=== PATIENT | female | born 1975 | race Caucasian/White ===

== ENCOUNTER 2016-09-14 09:46 | Emergency (ER) | payer MEDICAID ==
[2014-07-14 08:32] VITALS: BMI 30.6
[~2016-09-14 09:46] MED LIST: GLUCOPHAGE1000 MG PO; HYDROCODONE-APA1 TAB PO; VICTOZA0.6 MG/0.1 SQ
[2016-09-14 10:29] LABS: BASOPHILS 0.2 % (0.0-2.0); EOSINOPHILS 1.1 % (0-7); HEMATOCRIT 37.2 % (36.0-48.0); HEMOGLOBIN 11.8 g/dL (12-16); IMMATURE GRANULOCYTES 0.3 % (0-5); LYMPHOCYTES 20.6 % (15-50); MCH 25.1 pg (26.0-34.0); MCHC 31.7 g/dL (31.0-37.0); MEAN PLATELET VOLUME 8.7 fL (7.4-10.4); MONOCYTES 4.8 % (2-11); PLATELET COUNT 376 10x3/uL (130-400); RBC 4.71 10x6/uL (4.00-5.40); WBC 10.2 10x3/uL (4.8-10.8)
[2016-09-14 10:44] LABS: ALBUMIN 3.4 g/dL (3.4-5.0); ALKALINE PHOSPHATASE 77 U/L (46-116); ALT (SGPT) 12 U/L (10-68); AMYLASE - SERUM 65 U/L (25-115); BILIRUBIN - TOTAL 0.34 mg/dL (0.2-1.3); CALC OSMOLALITY 279 mosm/kg (275-300); CALCIUM 9.4 mg/dL (8.5-10.1); CARBON DIOXIDE 21.9 mmol/L (21.0-32.0); CHLORIDE - SERUM 100 mmol/L (98-107); CREATININE - SERUM 0.6 mg/dL (0.6-1.3); GLUCOSE 254 mg/dL (74-106); LIPASE 180 U/L (73-393); POTASSIUM - SERUM 3.1 mmol/L (3.5-5.1); PROTEIN - SERUM 7.9 g/dL (6.4-8.2); SODIUM 136 mmol/L (136-145); UREA NITROGEN 9 mg/dL (7-18); eGFR NON AFRICAN AMERICAN > 90 mL/min (90-120)
[2016-09-14 10:50] LABS: APPEARANCE CLEAR (CLEAR); BILIRUBIN NEGATIVE (NEGATIVE); COLOR YELLOW (YELLOW); GLUCOSE NEGATIVE (NEGATIVE); KETONE NEGATIVE (NEGATIVE); LEUKOCYTE ESTERASE TRACE (NEGATIVE); NITRITE NEGATIVE (NEGATIVE); PROTEIN 2+ mg/dL (NEGATIVE); UROBILINOGEN NORMAL (NORMAL)
[2016-09-14 10:51] LABS: EPITHELIAL CELLS 0-5 /hpf (0-5); RED CELLS - URINE 0-5 /hpf (0-5); WHITE CELLS - URINE 0-5 /hpf (0-5)
[2016-09-14 10:52] LABS: BACTERIA FEW /hpf (NONE SEEN); MUCUS <1+ /lpf (NONE SEEN)
== END 2016-09-14 15:39 | disposition home or self-care (01) ==
LOC: D.ER 09:46
PROVIDERS: Emergency Medicine
DX: K52.9 Noninfective gastroenteritis and colitis, unspecified (principal)

== ENCOUNTER 2016-09-29 21:20 | Emergency (ER) | payer MEDICAID ==
[2014-07-14 08:32] VITALS: BMI 30.6
== END 2016-09-29 23:12 | disposition home or self-care (01) ==
LOC: D.ER 21:20
DX: J06.9 Acute upper respiratory infection, unspecified (principal); F17.200 Nicotine dependence, unspecified, uncomplicated

== ENCOUNTER 2016-11-07 20:04 | Emergency (ER) | payer MEDICAID ==
[2014-07-14 08:32] VITALS: BMI 30.6
== END 2016-11-07 21:08 | disposition home or self-care (01) ==
LOC: D.ER 20:04
DX: R51 Headache (principal)

== ENCOUNTER → 2016-11-12 16:09 | Outpatient (CLI) | payer MEDICAID ==
[2014-07-14 08:32] VITALS: BMI 30.6
== END | disposition home or self-care (01) ==
LOC: D.MRI 16:09
DX: R51 Headache (principal)

== ENCOUNTER → 2016-11-14 08:09 | Outpatient (CLI) | payer MEDICAID ==
[2014-07-14 08:32] VITALS: BMI 30.6
--- NOTE | 2016-11-28 08:22 | EMG ---
PATIENT:KENYON HUA DATE OF SERVICE: 11/14/16 MEDICAL RECORD: [id number] DATE OF : 71 LOCATION: [facility] ADMISSION DATE: REFERRING PHYSICIAN: DYANA SEGOVIA MD INTERPRETING PHYSICIAN: AUSTYN DE LA O MD DATE OF SERVICE: 11/14/2016 Electromyographic Report REFERRED BY: Dr. Segovia as an outpatient. ELECTROMYOGRAPHIC DATA: Electromyographic examination is limited to the right lower extremity. In the right lower extremity, right peroneal motor stimulation elicits a compound motor action potential with a distal latency of 4.5 milliseconds, peak amplitude of 5 millivolts, and calculated conduction velocity of 36 meters per second. Right tibial motor stimulation elicits a compound motor action potential with a distal latency of 5.4 milliseconds, peak amplitude of 8 millivolts, and calculated conduction velocity of 40 meters per second. Antidromic right sural sensory stimulation elicits a response with a distal latency of 3.5 milliseconds, amplitude of 25 microvolts and calculated conduction velocity of 33 meters per second. The right lower extremity H reflex recording at gastrocsoleus has a latency of 40 milliseconds. Needle electrode examination is limited to the right lower extremity as well. Muscles interrogated include the abductor hallucis, extensor digitorum brevis, abductor digiti quinti, tibialis anterior, medial gastrocnemius, vastus lateralis, semitendinosis and gluteus mis. There is no abnormality of insertional activity and no abnormal spontaneous activity is seen in all muscles interrogated with the exception of rare positive sharp waves observed in the right medial gastrocnemius. Motor unit potential morphology and the pattern of motor unit potential firing and recruitment is normal in all muscles sampled. INTERPRETATION: Electromyographic examination of the right lower extremity demonstrates all calculated conduction velocity is to be at or below the lower limits of normal. All motor and sensory segments studied, most consistent with a diffuse disorder of the lower motor neuron such as a sensorimotor peripheral polyneuropathy, distinction between this and a more localized process navigated through this leg only such as a lumbosacral plexopathy, would require comparison to the contralateral lower extremity. Rare positive sharp waves are observed in the right medial gastrocnemius suggesting possible denervation in this muscle. Needle electrode examination is otherwise normal and gives no other evidence to suggest a superimposed lumbosacral radiculopathy or other lesion of the lower motor neuron in this limb. TRANSINT:[id number] Voice Confirmation ID: [id number] DOCUMENT ID: [id number] ELECTROMYGRAM/NERVE CONDUCTION [id number] KENYON HUA DONALD P MD at 0822 CC: [id number] DICTATION DATE: 11/14/16 0856 SETTER HELPER: 11/15/16 0002 DEP CLI 11/14/16 [place] [address] [id number] [place] [address]
== END | disposition home or self-care (01) ==
LOC: D.CN 08:00
DX: M79.604 Pain in right leg (principal)

== ENCOUNTER 2016-12-30 16:09 | Emergency (ER) | payer MEDICAID ==
[2014-07-14 08:32] VITALS: BMI 30.6
[2016-12-30 17:27] LABS: COLOR YELLOW (YELLOW)
[2016-12-30 17:28] LABS: APPEARANCE HAZY (CLEAR); BILIRUBIN NEGATIVE (NEGATIVE); GLUCOSE 1000 mg/dL (NEGATIVE); KETONE NEGATIVE (NEGATIVE); LEUKOCYTE ESTERASE 1+ (NEGATIVE); NITRITE NEGATIVE (NEGATIVE); PROTEIN TRACE mg/dL (NEGATIVE); SPECIFIC GRAVITY 1.015 (1.005-1.020); UROBILINOGEN NORMAL (NORMAL)
[2016-12-30 17:29] LABS: BACTERIA MODERATE /hpf (NONE SEEN); RED CELLS - URINE 0-5 /hpf (0-5); WHITE CELLS - URINE 0-5 /hpf (0-5)
[2016-12-30 17:35] LABS: BASOPHILS 0.5 % (0-2); EOSINOPHILS 1.7 % (0-7); HEMATOCRIT 37.1 % (36.0-48.0); HEMOGLOBIN 11.5 g/dL (12-16); IMMATURE GRANULOCYTES 0.1 % (0-5); LYMPHOCYTES 37.3 % (15-50); MCH 24.5 pg (26.0-34.0); MCV 79.1 fL (80.0-100.0); MEAN PLATELET VOLUME 9.1 fL (7.4-10.4); MONOCYTES 5.7 % (2-11); NEUTROPHILS 54.7 % (40-80); PLATELET COUNT 370 10x3/uL (130-400); RBC 4.69 10x6/uL (4.00-5.40); RDW 15.9 % (11.5-14.5); WBC 7.6 10x3/uL (4.8-10.8)
[2016-12-30 17:47] LABS: ALBUMIN 3.2 g/dL (3.4-5.0); ALKALINE PHOSPHATASE 95 U/L (46-116); ALT (SGPT) 17 U/L (10-68); BILIRUBIN - TOTAL 0.14 mg/dL (0.2-1.3); CALC OSMOLALITY 280 mosm/kg (275-300); CALCIUM 9.1 mg/dL (8.5-10.1); CARBON DIOXIDE 27.4 mmol/L (21.0-32.0); CHLORIDE - SERUM 99 mmol/L (98-107); CREATININE - SERUM 0.6 mg/dL (0.6-1.3); GLUCOSE 222 mg/dL (74-106); POTASSIUM - SERUM 3.5 mmol/L (3.5-5.1); PROTEIN - SERUM 7.7 g/dL (6.4-8.2); SODIUM 138 mmol/L (136-145); UREA NITROGEN 7 mg/dL (7-18); eGFR NON AFRICAN AMERICAN > 90 mL/min (90-120)
== END 2016-12-30 19:45 | disposition home or self-care (01) ==
LOC: D.ER 16:09
PROVIDERS: Nurse Practitioner Family
DX: J20.9 Acute bronchitis, unspecified (principal); J45.901 Unspecified asthma with (acute) exacerbation; J06.9 Acute upper respiratory infection, unspecified; F17.200 Nicotine dependence, unspecified, uncomplicated

== ENCOUNTER 2017-01-06 20:26 | Emergency (ER) | payer MEDICAID ==
[2014-07-14 08:32] VITALS: BMI 30.6
== END 2017-01-07 00:10 | disposition home or self-care (01) ==
LOC: D.ER 20:26
DX: M54.5 Low back pain (principal); M54.10 Radiculopathy, site unspecified; J45.909 Unspecified asthma, uncomplicated

== ENCOUNTER 2017-02-17 10:40 | Emergency (ER) | payer SELFPAY ==
[2014-07-14 08:32] VITALS: BMI 30.6
== END 2017-02-17 12:01 | disposition home or self-care (01) ==
LOC: D.ER 10:40
DX: S16.1XXA Strain of muscle, fascia and tendon at neck level, initial encounter (principal); W19.XXXA Unspecified fall, initial encounter; S39.012A Strain of muscle, fascia and tendon of lower back, initial encounter; F17.200 Nicotine dependence, unspecified, uncomplicated

== ENCOUNTER 2017-04-09 19:44 | Emergency (ER) | payer BC ==
[2014-07-14 08:32] VITALS: BMI 30.6
== END 2017-04-09 20:40 | disposition home or self-care (01) ==
LOC: D.ER 19:44
DX: M54.5 Low back pain (principal); M54.30 Sciatica, unspecified side; J45.909 Unspecified asthma, uncomplicated; F17.200 Nicotine dependence, unspecified, uncomplicated

== ENCOUNTER → 2017-04-25 13:00 | Outpatient (CLI) | payer BC ==
[2014-07-14 08:32] VITALS: BMI 30.6
[2017-04-25 13:59] LABS: CREATININE - SERUM 0.7 mg/dL (0.6-1.3)
== END | disposition home or self-care (01) ==
LOC: D.LAB 13:00 → D.MRI 13:30
PROVIDERS: Neurological Surgery
DX: M51.26 Other intervertebral disc displacement, lumbar region (principal)

== ENCOUNTER 2017-05-07 05:31 | Day surgery (SDC) | payer BC ==
[2017-05-06 14:02] LABS: HEMATOCRIT 40.2 % (36.0-48.0); HEMOGLOBIN 12.9 g/dL (12-16); MCH 25.4 pg (26.0-34.0); MCHC 32.1 g/dL (31.0-37.0); MCV 79.3 fL (80.0-100.0); MEAN PLATELET VOLUME 9.5 fL (7.4-10.4); RBC 5.07 10x6/uL (4.00-5.40); RDW 16.1 % (11.5-14.5); WBC 12.8 10x3/uL (4.8-10.8)
[2017-05-06 14:31] LABS: CALC OSMOLALITY 287 mosm/kg (275-300); CALCIUM 9.3 mg/dL (8.5-10.1); CARBON DIOXIDE 24.7 mmol/L (21.0-32.0); CHLORIDE - SERUM 94 mmol/L (98-107); CREATININE - SERUM 0.8 mg/dL (0.6-1.3); POTASSIUM - SERUM 3.4 mmol/L (3.5-5.1); SODIUM 135 mmol/L (136-145); UREA NITROGEN 6 mg/dL (7-18); eGFR NON AFRICAN AMERICAN 83 mL/min (90-120)
[2017-05-06 14:35] LABS: GLUCOSE 457 mg/dL (74-106)
[~2017-05-07] VITALS: Ht 170.2 cm; Wt 83.5 kg
[~2017-05-07 05:31] MED LIST changes: +PERCOCET 10/3251 TA1 PO; +PROAIR HFA8.5 GM INH
[2017-05-07] MEDS ORDERED: ZANAFLEX4 MG PO (06:19)
[2017-05-07] MEDS ORDERED: GABAPENTIN PO (06:21)
--- NOTE | 2017-05-07 06:29 | NUR ---
0629 PT STATES NO CHANGES IN HEALTH HISTORY ASSESSMENT SINCE INTERVIEWED ON 05/06/17. Sarmad CRESPO R.N.
[2017-05-07 06:31] VITALS: BP 107/69; Ht 170.2 cm; Wt 83.5 kg
--- NOTE | 2017-05-07 15:42 | NUR ---
1135 IV DC WITH CATHER TIP INTACT
--- NOTE | 2017-05-10 09:41 | OP ---
PATIENT NAME: KENYON WATSON MEDICAL RECORD: [id number] :71 LOCATION:[facility] ADMISSION DATE: SURGEON: KARI BREAUX MD DATE OF OPERATION: 05/07/2017 PREOPERATIVE DIAGNOSIS: Recurrent disc herniation L5-S1, right with right S1 nerve root radiculopathy. POSTOPERATIVE DIAGNOSIS: Recurrent disc herniation L5-S1, right with a right S1 nerve roots radiculopathy, with foraminal stenosis. PROCEDURES: Lumbar laminotomy, medial facetectomy and foraminotomy with discectomy at L5-S1, right. Redo laminectomy L5-S1, right with METRx retractor and foraminotomy L5-S1, right. DESCRIPTION AND TECHNIQUE: After induction of general endotracheal anesthesia, the patient was rolled prone on a Cristian frame. Lumbar spine was prepped and draped in usual sterile fashion. Fluoroscopic x-ray and spinal needle localized the L5-S1 interspace on the right side. A stab incision was created with #11 blade and series of dilators was used to advance the METRx retractor at L5-S1 interspace on the right side. The level was confirmed with fluoroscopic x-ray. A microscope and Midas Rick drill were used to perform a laminectomy and foraminotomy at L5-S1 on the right. A previous laminotomy was encountered. This was extended to laminectomy. Scar tissue was removed with Cloward rongeurs under microscopic illumination. Hypertrophied ligamentum flavum was removed as well. Next, there was an obvious disc herniation within the axilla at the S1 nerve root. This was removed with pituitary rongeurs. The disc space was entered with the pituitary rongeurs and further material was removed. The spinal canal was swept and a small additional disc fragment was obtained. The nerve root was completely decompressed after this. Meticulous hemostasis was maintained throughout the wound. Wound was irrigated with copious amounts of Ancef irrigant solution. The fascia was closed with a 2-0 Vicryl suture. The subdermal layer was closed with 3-0 Vicryl suture. The skin was closed with zeina. A sterile dressing was applied to the wound. The patient was awakened in good condition and taken to recovery. All counts were reported as correct. Estimated blood loss was minimal. TRANSINT:[id number] Voice Confirmation ID: [id number] DOCUMENT ID: [id number] KARI BREAUX MD at 0941 CC: [id number] DICTATION DATE: 05/08/17 1247 PAPER SALES MANAGER: 05/08/17 1833 [facility] 05/07/17 [place] [id number] [place] [id number]
== END 2017-05-07 12:30 | disposition home or self-care (01) ==
LOC: D.PAN 05:31 → D.OPS 10:15 → D.PAN 10:15
PROVIDERS: Anesthesiology
DX: M54.16 Radiculopathy, lumbar region (principal); F17.200 Nicotine dependence, unspecified, uncomplicated; J45.909 Unspecified asthma, uncomplicated; E11.9 Type 2 diabetes mellitus without complications; Z01.812 Encounter for preprocedural laboratory examination

== ENCOUNTER 2017-07-13 17:36 | Emergency (ER) | payer BC ==
[2017-05-07 06:31] VITALS: BMI 28.9
[~2017-07-13 17:36] MED LIST changes: +GABAPENTIN PO; +ZANAFLEX4 MG PO
[2017-07-13 19:00] LABS: APPEARANCE HAZY (CLEAR); BILIRUBIN NEGATIVE (NEGATIVE); COLOR DK YELLOW (YELLOW); GLUCOSE NEGATIVE (NEGATIVE); KETONE MODERATE mg/dL (NEGATIVE); NITRITE NEGATIVE (NEGATIVE); PROTEIN TRACE mg/dL (NEGATIVE); SPECIFIC GRAVITY 1.015 (1.005-1.020); UROBILINOGEN NORMAL (NORMAL)
[2017-07-13 19:03] LABS: BACTERIA FEW /hpf (NONE SEEN); EPITHELIAL CELLS 25-50 /hpf (0-5)
[2017-07-13 19:05] LABS: AMORPHOUS SEDIMENT <1+ /lpf (NONE SEEN)
[2017-07-13 20:08] LABS: BASOPHILS 0.2 % (0-2); EOSINOPHILS 1.3 % (0-7); HEMATOCRIT 38.7 % (36.0-48.0); HEMOGLOBIN 12.4 g/dL (12-16); IMMATURE GRANULOCYTES 0.2 % (0-5); MCH 26.2 pg (26.0-34.0); MCV 81.8 fL (80.0-100.0); MONOCYTES 7.5 % (2-11); NEUTROPHILS 61.8 % (40-80); PLATELET COUNT 289 10x3/uL (130-400); RBC 4.73 10x6/uL (4.00-5.40); WBC 8.6 10x3/uL (4.8-10.8)
[2017-07-13 20:26] LABS: ALBUMIN 3.2 g/dL (3.4-5.0); ALKALINE PHOSPHATASE 88 U/L (46-116); ALT (SGPT) 15 U/L (10-68); BILIRUBIN - TOTAL 0.28 mg/dL (0.2-1.3); CALCIUM 8.9 mg/dL (8.5-10.1); CHLORIDE - SERUM 99 mmol/L (98-107); CREATININE - SERUM 0.4 mg/dL (0.6-1.3); PROTEIN - SERUM 7.5 g/dL (6.4-8.2); SODIUM 138 mmol/L (136-145); UREA NITROGEN 7 mg/dL (7-18); eGFR NON AFRICAN AMERICAN > 90 mL/min (90-120)
[2017-07-13 20:31] LABS: CALC OSMOLALITY 277 mosm/kg (275-300); GLUCOSE 164 mg/dL (74-106)
[2017-07-13 20:34] LABS: POTASSIUM - SERUM 2.8 mmol/L (3.5-5.1)
== END 2017-07-13 20:15 | disposition home or self-care (01) ==
LOC: D.ER 17:36
PROVIDERS: Emergency Medicine; Physician Assistant Medical
DX: N39.0 Urinary tract infection, site not specified (principal); Z91.19 Patient's noncompliance with other medical treatment and regimen

== ENCOUNTER 2017-08-19 03:26 | Emergency (ER) | payer BC ==
[2017-05-07 06:31] VITALS: BMI 28.9
[2017-08-19 03:53] LABS: APPEARANCE CLEAR (CLEAR); BILIRUBIN NEGATIVE (NEGATIVE); COLOR YELLOW (YELLOW); GLUCOSE 500 mg/dL (NEGATIVE); KETONE NEGATIVE (NEGATIVE); NITRITE NEGATIVE (NEGATIVE); PROTEIN NEGATIVE (NEGATIVE); SPECIFIC GRAVITY 1.015 (1.005-1.020); UROBILINOGEN NORMAL (NORMAL)
[2017-08-19 04:00] LABS: BASOPHILS 0.1 % (0-2); EOSINOPHILS 0.6 % (0-7); HEMATOCRIT 38.2 % (36.0-48.0); HEMOGLOBIN 12.6 g/dL (12-16); IMMATURE GRANULOCYTES 0.2 % (0-5); LYMPHOCYTES 26.2 % (15-50); MCH 26.7 pg (26.0-34.0); MCV 80.9 fL (80.0-100.0); MONOCYTES 6.3 % (2-11); NEUTROPHILS 66.6 % (40-80); PLATELET COUNT 344 10x3/uL (130-400); RBC 4.72 10x6/uL (4.00-5.40); RDW 14.4 % (11.5-14.5); WBC 16.1 10x3/uL (4.8-10.8)
[2017-08-19 04:24] LABS: KETONE - SERUM NEGATIVE (NEGATIVE)
[2017-08-19 04:26] LABS: ALBUMIN 3.1 g/dL (3.4-5.0); ALKALINE PHOSPHATASE 109 U/L (46-116); ALT (SGPT) 11 U/L (10-68); CALC OSMOLALITY 280 mosm/kg (275-300); CARBON DIOXIDE 29.1 mmol/L (21.0-32.0); CHLORIDE - SERUM 93 mmol/L (98-107); CREATININE - SERUM 0.6 mg/dL (0.6-1.3); MAGNESIUM - SERUM 1.7 mg/dL (1.8-2.4); PROTEIN - SERUM 7.7 g/dL (6.4-8.2); SODIUM 132 mmol/L (136-145); UREA NITROGEN 6 mg/dL (7-18); eGFR NON AFRICAN AMERICAN > 90 mL/min (90-120)
[2017-08-19 04:35] LABS: GLUCOSE 418 mg/dL (74-106)
== END 2017-08-19 06:00 | disposition home or self-care (01) ==
LOC: D.ER 03:26
PROVIDERS: Emergency Medicine
DX: E11.65 Type 2 diabetes mellitus with hyperglycemia (principal); M54.9 Dorsalgia, unspecified; M79.604 Pain in right leg; E87.6 Hypokalemia; E83.42 Hypomagnesemia; F17.200 Nicotine dependence, unspecified, uncomplicated

== ENCOUNTER → 2017-10-23 15:07 | Outpatient (CLI) | payer BC ==
[2017-05-07 06:31] VITALS: BMI 28.9
== END | disposition home or self-care (01) ==
LOC: D.MRI 15:07
DX: M54.16 Radiculopathy, lumbar region (principal)

== ENCOUNTER 2017-12-31 05:25 | Inpatient (IN) | payer BC ==
[2017-12-30 10:48] LABS: HEMATOCRIT 39.2 % (36.0-48.0); HEMOGLOBIN 12.7 g/dL (12-16); MCH 26.5 pg (26.0-34.0); MCHC 32.4 g/dL (31.0-37.0); MCV 81.8 fL (80.0-100.0); MEAN PLATELET VOLUME 8.9 fL (7.4-10.4); RBC 4.79 10x6/uL (4.00-5.40); RDW 14.5 % (11.5-14.5); WBC 8.1 10x3/uL (4.8-10.8)
[2017-12-30 11:20] LABS: CALC OSMOLALITY 274 mosm/kg (275-300); CALCIUM 8.9 mg/dL (8.5-10.1); CARBON DIOXIDE 29.7 mmol/L (21.0-32.0); CHLORIDE - SERUM 96 mmol/L (98-107); CREATININE - SERUM 0.6 mg/dL (0.6-1.3); POTASSIUM - SERUM 3.2 mmol/L (3.5-5.1); SODIUM 135 mmol/L (136-145); UREA NITROGEN 4 mg/dL (7-18); eGFR NON AFRICAN AMERICAN > 90 mL/min (90-120)
[2017-12-30 11:22] LABS: GLUCOSE 236 mg/dL (74-106)
[2017-12-31] VITALS (17 sets, daily range): BP systolic 94–121; BP diastolic 58–79; Ht 170.2 cm; Wt 85.3 kg
[~2017-12-31] VITALS: Ht 170.2 cm; Wt 85.3 kg
--- NOTE | ~2017-12-31 | OP ---
PATIENT NAME: KENYON WATSON MEDICAL RECORD: [id number] :71 LOCATION:[facility] D.2312 ADMISSION DATE:12/31/17 SURGEON: BRIAN SMITH MD DATE OF OPERATION: 12/31/2017 This is a co-surgeon case. PREOPERATIVE DIAGNOSES: Herniated nucleus pulposus, also lumbar radiculopathy, also degenerative disc disease, L5-S1. POSTOPERATIVE DIAGNOSES: Herniated nucleus pulposus, also lumbar radiculopathy, also degenerative disc disease L5-S1. PROCEDURE: Anterior lumbar interbody fusion exposure. CO-SURGEON: Kari Breaux MD CO-SURGEON: Brian Smith MD FIBERGLASS BOAT MAKER: Dr. Curtis Nielsen. ANESTHESIA: General. ESTIMATED BLOOD LOSS: Minimal. This was a cosurgeon procedure. Due to complexity of the procedure, 2 attending surgeons were necessary during the operative procedure. Dr. Kari Breaux was the neurosurgeon. The access surgeon, who is a general surgeon, is Dr. Brian Smith. For the description of the construct please see Dr. Breaux's note. I was present through the entire operation from the initial skin incision to the final closure. I never left the operating room and was present and assisted Dr. Breaux during insertion of the construct. DESCRIPTION OF THE PROCEDURE: The patient was conveyed to the operating room electively on 12/31/2016. General anesthesia was induced by the anesthesia staff. The abdomen was sterilely prepped and draped. An incision was accomplished in the midline. Sharp dissection was carried down through skin and subcutaneous tissue as well as Haseeb's fascia. The linea alba was incised in the midline. I then elevated the left rectus abdominis muscle. Creating an extraperitoneal plane, I continued around on the left side. The round ligament was identified and divided. The transversalis fascia was identified and divided. I elevated the epigastric vein. The visceral sac was then pulled to the left. I identified the ureter. The iliac artery and vein were identified. The ureter was protected and undamaged through the entire operation. I identified the L5-S1 disc space. The Bookwalter retractor was then fixated above the incision and the retractor blades were placed. We elevated the bifurcation of the inferior vena cava as well as both common iliac veins. This exposed the L5-S1 disc space. The median sacral vein was cauterized with the bipolar cautery. Dr. Breaux then inserted a needle into the L5-S1 disc space and this disc space was confirmed radiographically. I was present and retracted venous structures away from Dr. Breaux's operative field while he performed the OPERATIVE REPORT [id number] KENYON WATSON S discectomy and placement of the spinal construct. I was with him during this entire procedure and assisted him with retraction of tissue away from his operative site. Once he was finished with insertion of the construct and was satisfied with how it appeared radiographically, I went about closing the abdomen. I released the retractors. There was no bleeding. I identified the left ureter and it was undamaged during the procedure. I noted no evidence of a DVT in the left iliac venous system. There appeared to have been no intestinal injury. No injury to the bladder. The linea alba was closed in the midline with a running looped 0 PDS from the cephalad and caudad directions. Haseeb's fascia was approximated with interrupted 3-0 Vicryls. The subdermis was approximated with interrupted 3-0 Vicryls. The skin was approximated with a running intracuticular 3-0 Vicryl. Benzoin and Steri-Strips were applied. The patient was then extubated and conveyed to post-anesthesia care unit where she was in stable condition. TRANSINT:[id number] Voice Confirmation ID: [id number] DOCUMENT ID: [id number] BRIAN SMITH MD at 1158 CC: KARI BREAUX and DYANA TOLEDO MD [id number] DICTATION DATE: 12/31/1750 REGISTERED NURSE AMBULATORY: 12/31/17 1224 DIS IN 01/02/18 [place] [id number] [place] [id number]
--- NOTE | ~2017-12-31 | OP ---
PATIENT NAME: KENYON WATSON MEDICAL RECORD: [id number] :71 LOCATION:[facility] D.2312 ADMISSION DATE:12/31/17 SURGEON: KARI BREAUX MD DATE OF OPERATION: 12/31/2017 PREOPERATIVE DIAGNOSES: Lumbar radiculopathy, severe degenerative disc disease at L5-S1 with complete collapse of L5-S1 disc space, bilateral foraminal stenosis at L5-S1. PROCEDURE: Anterior lumbar interbody fusion with a Lashell spine AKOSUA-A interbody cage and plates, 27 mm deep x 36 mm wide with 14 degrees of lordosis. SURGEON: Kari Breuax MD CO-SURGEON: Dr. Ortega Fonseca. DESCRIPTION OF TECHNIQUE: After exposure of the anterior lumbar spine by Dr. Fonseca and Dr. Nielsen, I entered the operating field. The L5-S1 disc space was identified with fluoroscopic x-ray and a spinal needle. The midline was also confirmed this way. Under direct vision, an incision was made in the annulus with a #11 blade from left to right. The entire annulus was removed with pituitary rongeurs and curettes. The endplates were prepared at L5 and S1 with curettes and pituitary rongeurs. The disc material was removed until healthy bony endplate was encountered at L5 and S1 endplates. Posteriorly, the disc material was cleaned out from the foramen on both sides. A series of trials was used to determine that a 14 mm high, 27 mm deep, and 36 mm wide with 14 degrees lordosis was appropriate for the L5-S1 disc space. ViaCell bone stem cell allograft was used to fill the interbody cage. The cage was then placed in the disc space under distraction. Next, under fluoroscopic control, plates were used to secure the ALIF cage in place superiorly and inferiorly at the L5 and S1 vertebral bodies. Following this, the plates were locked into position. It was a separate plate for L5 and S1. Good position of the plate was confirmed with fluoroscopic x-ray. Meticulous hemostasis was maintained throughout the wound. The closure was then turned over to Dr. Fonseca and Dr. Nielsen. TRANSINT:[id number] Voice Confirmation ID: [id number] DOCUMENT ID: [id number] KARI BREAUX MD at 1452 CC: [id number] DICTATION DATE: 01/20/18 0754 DIRECTOR OF ONLINE MERCHANDISING: 01/20/18 1037 DIS IN 01/02/18 [facility] [address] [place] [address]
[~2017-12-31 05:25] MED LIST changes: +PEPCID20 MG PO
[2018-01-01] VITALS (15 sets, daily range): BP systolic 94–129; BP diastolic 56–73
[2018-01-01 05:03] LABS: BASOPHILS 0.1 % (0-2); EOSINOPHILS 0 % (0-7); HEMATOCRIT 34.5 % (36.0-48.0); HEMOGLOBIN 10.9 g/dL (12-16); IMMATURE GRANULOCYTES 0.3 % (0-5); LYMPHOCYTES 10.2 % (15-50); MCH 26.1 pg (26.0-34.0); MCHC 31.6 g/dL (31.0-37.0); MCV 82.5 fL (80.0-100.0); MONOCYTES 4.1 % (2-11); NEUTROPHILS 85.3 % (40-80); PLATELET COUNT 310 10x3/uL (130-400); RBC 4.18 10x6/uL (4.00-5.40); RDW 14.6 % (11.5-14.5)
[2018-01-01 05:05] LABS: WBC 15.9 10x3/uL (4.8-10.8)
[2018-01-01 05:13] LABS: CHLORIDE - SERUM 99 mmol/L (98-107); CREATININE - SERUM 0.7 mg/dL (0.6-1.3); POTASSIUM - SERUM 3.2 mmol/L (3.5-5.1); SODIUM 132 mmol/L (136-145); eGFR NON AFRICAN AMERICAN > 90 mL/min (90-120)
[2018-01-01 05:17] LABS: CALC OSMOLALITY 275 mosm/kg (275-300); GLUCOSE 337 mg/dL (74-106); UREA NITROGEN 7 mg/dL (7-18)
[2018-01-02 03:00] VITALS: BP 107/66
[2018-01-02] MEDS ORDERED: PERCOCET 10/3251 TA1 PO (07:41)
[2018-01-02] MEDS ORDERED: LEVAQUIN500 MG PO (08:01)
[2018-01-02 08:10] VITALS: BP 132/72
== END 2018-01-02 09:20 | disposition home or self-care (01) | DRG 460 ==
LOC: D.OPS 05:25 → D.ICU 05:25 → D.OPS 07:30 → D.PAN 07:30 → EDSTATUS 07:30 → D.ICU 12:11 → D.OPS 12:12 → D.ICU 12:12
PROVIDERS: Anesthesiology; Neurological Surgery
PROC: 0SG00A0 Fusion of Lumbar Vertebral Joint with Interbody Fusion Device, Anterior Approach, Anterior Column, Open Approach (ICD-10-PCS; principal; 2017-12-31 07:30)
DX: M51.17 Intervertebral disc disorders with radiculopathy, lumbosacral region (principal); M51.27 Other intervertebral disc displacement, lumbosacral region

== ENCOUNTER 2018-01-12 21:14 | Emergency (ER) | payer BC ==
[2017-12-31 13:00] VITALS: BMI 28.7
[~2018-01-12 21:14] MED LIST changes: +LEVAQUIN500 MG PO
[2018-01-12 22:08] LABS: APPEARANCE CLEAR (CLEAR); COLOR YELLOW (YELLOW); NITRITE NEGATIVE (NEGATIVE); PROTEIN NEGATIVE (NEGATIVE)
[2018-01-12 22:09] LABS: BILIRUBIN NEGATIVE (NEGATIVE); GLUCOSE 250 mg/dL (NEGATIVE); KETONE NEGATIVE (NEGATIVE); UROBILINOGEN NORMAL (NORMAL)
[2018-01-12 23:03] LABS: BASOPHILS 0.2 % (0-2); EOSINOPHILS 1.4 % (0-7); HEMOGLOBIN 11.4 g/dL (12-16); IMMATURE GRANULOCYTES 0.2 % (0-5); LYMPHOCYTES 32.1 % (15-50); MCH 26.6 pg (26.0-34.0); MCHC 32.6 g/dL (31.0-37.0); MCV 81.6 fL (80.0-100.0); MEAN PLATELET VOLUME 8.9 fL (7.4-10.4); MONOCYTES 5.5 % (2-11); NEUTROPHILS 60.6 % (40-80); PLATELET COUNT 350 10x3/uL (130-400); RBC 4.29 10x6/uL (4.00-5.40); WBC 8.6 10x3/uL (4.8-10.8)
[2018-01-12 23:16] LABS: ALBUMIN 2.8 g/dL (3.4-5.0); ALKALINE PHOSPHATASE 99 U/L (46-116); ALT (SGPT) 12 U/L (10-68); CALC OSMOLALITY 270 mosm/kg (275-300); CALCIUM 8.8 mg/dL (8.5-10.1); CHLORIDE - SERUM 102 mmol/L (98-107); CREATININE - SERUM 0.6 mg/dL (0.6-1.3); POTASSIUM - SERUM 3.1 mmol/L (3.5-5.1); PROTEIN - SERUM 7.6 g/dL (6.4-8.2); SODIUM 131 mmol/L (136-145); UREA NITROGEN 7 mg/dL (7-18); eGFR NON AFRICAN AMERICAN > 90 mL/min (90-120)
[2018-01-12 23:17] LABS: GLUCOSE 285 mg/dL (74-106)
== END 2018-01-12 23:52 | disposition home or self-care (01) ==
LOC: D.ER 21:14
PROVIDERS: Family Medicine; Physician Assistant Medical
DX: G89.18 Other acute postprocedural pain (principal); F17.200 Nicotine dependence, unspecified, uncomplicated

== ENCOUNTER 2018-01-20 20:52 | Emergency (ER) | payer BC ==
[2017-12-31 13:00] VITALS: BMI 28.7
[2018-01-20 21:35] LABS: BASOPHILS 0.2 % (0-2); EOSINOPHILS 1.8 % (0-7); HEMOGLOBIN 11.9 g/dL (12-16); IMMATURE GRANULOCYTES 0.2 % (0-5); LYMPHOCYTES 33.4 % (15-50); MCH 25.9 pg (26.0-34.0); MCHC 32.2 g/dL (31.0-37.0); MCV 80.6 fL (80.0-100.0); MEAN PLATELET VOLUME 8.5 fL (7.4-10.4); MONOCYTES 5.8 % (2-11); NEUTROPHILS 58.6 % (40-80); PLATELET COUNT 401 10x3/uL (130-400); RBC 4.59 10x6/uL (4.00-5.40); RDW 14.4 % (11.5-14.5); WBC 8.2 10x3/uL (4.8-10.8)
[2018-01-20 21:43] LABS: APPEARANCE CLEAR (CLEAR); BILIRUBIN NEGATIVE (NEGATIVE); COLOR YELLOW (YELLOW); GLUCOSE 100 mg/dL (NEGATIVE); KETONE NEGATIVE (NEGATIVE); NITRITE NEGATIVE (NEGATIVE); PROTEIN NEGATIVE (NEGATIVE); UROBILINOGEN NORMAL (NORMAL)
[2018-01-20 21:44] LABS: EPITHELIAL CELLS 0-5 /hpf (0-5); RED CELLS - URINE OCC /hpf (0-5); WHITE CELLS - URINE OCC /hpf (0-5)
[2018-01-20 21:45] LABS: BACTERIA FEW /hpf (NONE SEEN)
[2018-01-20 21:49] LABS: ALBUMIN 3.1 g/dL (3.4-5.0); ALKALINE PHOSPHATASE 105 U/L (46-116); ALT (SGPT) 9 U/L (10-68); BILIRUBIN - TOTAL 0.22 mg/dL (0.2-1.3); CALC OSMOLALITY 283 mosm/kg (275-300); CALCIUM 9.5 mg/dL (8.5-10.1); CARBON DIOXIDE 30.2 mmol/L (21.0-32.0); CHLORIDE - SERUM 100 mmol/L (98-107); CREATININE - SERUM 0.8 mg/dL (0.6-1.3); GLUCOSE 254 mg/dL (74-106); POTASSIUM - SERUM 3.2 mmol/L (3.5-5.1); PROTEIN - SERUM 7.8 g/dL (6.4-8.2); SODIUM 139 mmol/L (136-145); UREA NITROGEN 5 mg/dL (7-18); eGFR NON AFRICAN AMERICAN 82 mL/min (90-120)
== END 2018-01-20 23:04 | disposition home or self-care (01) ==
LOC: D.ER 20:52
PROVIDERS: Family Medicine
DX: R19.7 Diarrhea, unspecified (principal); E11.9 Type 2 diabetes mellitus without complications; F17.200 Nicotine dependence, unspecified, uncomplicated

== ENCOUNTER → 2018-04-03 13:05 | Outpatient (CLI) | payer BC ==
[2017-12-31 13:00] VITALS: BMI 28.7
[~2018-04-03 13:05] MED LIST changes: +NEURONTIN 300300 MG PO
== END | disposition home or self-care (01) ==
LOC: D.MRI 04-01 09:00
DX: M54.16 Radiculopathy, lumbar region (principal)

== ENCOUNTER 2018-05-27 21:40 | Emergency (ER) | payer BC ==
[~2018-05-27] VITALS: Ht 170.2 cm; Wt 79.5 kg
[~2018-05-27 21:40] MED LIST changes: -NEURONTIN 300300 MG PO
[2018-05-27 21:54] VITALS: Ht 170.2 cm; Wt 79.5 kg
[2018-05-27] MEDS ORDERED: NEURONTIN 300300 MG PO (21:55)
[2018-05-27 22:41] LABS: BASOPHILS 0.2 % (0-2); EOSINOPHILS 0.8 % (0-7); HEMATOCRIT 38.3 % (36.0-48.0); HEMOGLOBIN 13.2 g/dL (12-16); IMMATURE GRANULOCYTES 0.3 % (0-5); LYMPHOCYTES 19.7 % (15-50); MCHC 34.5 g/dL (31.0-37.0); MCV 78.5 fL (80.0-100.0); MEAN PLATELET VOLUME 9.5 fL (7.4-10.4); MONOCYTES 6.9 % (2-11); NEUTROPHILS 72.1 % (40-80); RBC 4.88 10x6/uL (4.00-5.40); RDW 15.3 % (11.5-14.5); WBC 15.6 10x3/uL (4.8-10.8)
[2018-05-27 22:42] LABS: PLATELET COUNT 296 10x3/uL (130-400)
[2018-05-27 22:49] LABS: APPEARANCE CLEAR (CLEAR); BILIRUBIN NEGATIVE (NEGATIVE); COLOR YELLOW (YELLOW); GLUCOSE 1000 mg/dL (NEGATIVE); KETONE NEGATIVE (NEGATIVE); NITRITE NEGATIVE (NEGATIVE); PROTEIN TRACE mg/dL (NEGATIVE); SPECIFIC GRAVITY 1.015 (1.005-1.020); UROBILINOGEN NORMAL (NORMAL)
[2018-05-27 22:57] LABS: UDS - AMPHET NEGATIVE QUAL (NEGATIVE); UDS - BARB NEGATIVE QUAL (NEGATIVE); UDS - BENZO NEGATIVE QUAL (NEGATIVE); UDS - COCAINE NEGATIVE QUAL (NEGATIVE); UDS - OPIATE NEGATIVE QUAL (NEGATIVE); UDS - PCP NEGATIVE QUAL (NEGATIVE); UDS - THC NEGATIVE QUAL (NEGATIVE)
[2018-05-27 23:03] LABS: ALBUMIN 3.4 g/dL (3.4-5.0); ALKALINE PHOSPHATASE 111 U/L (46-116); ALT (SGPT) 14 U/L (10-68); BILIRUBIN - TOTAL 0.36 mg/dL (0.2-1.3); CALC OSMOLALITY 279 mosm/kg (275-300); CALCIUM 9.2 mg/dL (8.5-10.1); CARBON DIOXIDE 23.1 mmol/L (21.0-32.0); CHLORIDE - SERUM 94 mmol/L (98-107); CREATININE - SERUM 0.8 mg/dL (0.6-1.3); GLUCOSE 384 mg/dL (74-106); PROTEIN - SERUM 8.2 g/dL (6.4-8.2); SODIUM 133 mmol/L (136-145); UREA NITROGEN 6 mg/dL (7-18); eGFR NON AFRICAN AMERICAN 82 mL/min (90-120)
[2018-05-27 23:17] LABS: CKMB 0.3 U/L (0.0-3.6); CREATINE KINASE 22 UL (21-215)
[2018-05-27 23:20] LABS: TROPONIN-I < 0.017 ng/mL (0.000-0.060)
[2018-05-28 00:18] VITALS: BP 134/79
== END 2018-05-28 00:18 | disposition home or self-care (01) ==
LOC: D.ER 21:40
PROVIDERS: Family Medicine
DX: F41.9 Anxiety disorder, unspecified (principal); E11.65 Type 2 diabetes mellitus with hyperglycemia; E87.6 Hypokalemia; F17.200 Nicotine dependence, unspecified, uncomplicated

== ENCOUNTER → 2018-07-03 12:41 | Outpatient (CLI) | payer MEDICARE, BC ==
[2018-05-27 21:54] VITALS: BMI 27.4
[~2018-07-03 12:41] MED LIST changes: +NEURONTIN 300300 MG PO
== END | disposition home or self-care (01) ==
LOC: D.MRI 12:41
DX: M54.12 Radiculopathy, cervical region (principal)

== ENCOUNTER 2018-07-15 00:45 | Emergency (ER) | payer MEDICARE, BC ==
[~2018-07-15] VITALS: Ht 170.2 cm; Wt 79.5 kg
[2018-07-15 01:03] VITALS: Ht 170.2 cm; Wt 79.5 kg
[2018-07-15 01:28] LABS: APPEARANCE CLEAR (CLEAR); BILIRUBIN NEGATIVE (NEGATIVE); COLOR YELLOW (YELLOW); GLUCOSE 1000 mg/dL (NEGATIVE); KETONE NEGATIVE (NEGATIVE); NITRITE NEGATIVE (NEGATIVE); PROTEIN NEGATIVE (NEGATIVE); SPECIFIC GRAVITY 1.005 (1.005-1.020); UROBILINOGEN NORMAL (NORMAL)
[2018-07-15 01:29] LABS: HCG URINE NEGATIVE (NEGATIVE)
[2018-07-15 01:42] LABS: BASOPHILS 0.2 % (0-2); EOSINOPHILS 1.8 % (0-7); HEMATOCRIT 35.8 % (36.0-48.0); HEMOGLOBIN 11.9 g/dL (12-16); IMMATURE GRANULOCYTES 0.3 % (0-5); LYMPHOCYTES 37.1 % (15-50); MCH 26.7 pg (26.0-34.0); MCHC 33.2 g/dL (31.0-37.0); MCV 80.4 fL (80.0-100.0); MEAN PLATELET VOLUME 9.2 fL (7.4-10.4); MONOCYTES 7.6 % (2-11); PLATELET COUNT 315 10x3/uL (130-400); RBC 4.45 10x6/uL (4.00-5.40); RDW 14.7 % (11.5-14.5); WBC 6.5 10x3/uL (4.8-10.8)
[2018-07-15 01:55] LABS: ALKALINE PHOSPHATASE 103 U/L (46-116); ALT (SGPT) 12 U/L (10-68); BILIRUBIN - TOTAL 0.13 mg/dL (0.2-1.3); CALC OSMOLALITY 283 mosm/kg (275-300); CALCIUM 8.6 mg/dL (8.5-10.1); CARBON DIOXIDE 27.1 mmol/L (21.0-32.0); CHLORIDE - SERUM 95 mmol/L (98-107); CREATININE - SERUM 0.7 mg/dL (0.6-1.3); POTASSIUM - SERUM 3.1 mmol/L (3.5-5.1); PROTEIN - SERUM 7.3 g/dL (6.4-8.2); SODIUM 132 mmol/L (136-145); UREA NITROGEN 6 mg/dL (7-18); eGFR NON AFRICAN AMERICAN > 90 mL/min (90-120)
[2018-07-15 01:57] LABS: GLUCOSE 483 mg/dL (74-106); KETONE - SERUM NEGATIVE (NEGATIVE)
[2018-07-15 04:29] VITALS: BP 134/71
== END 2018-07-15 04:18 | disposition home or self-care (01) ==
LOC: D.ER 00:45
PROVIDERS: Family Medicine
DX: E11.65 Type 2 diabetes mellitus with hyperglycemia (principal); F17.200 Nicotine dependence, unspecified, uncomplicated

== ENCOUNTER 2018-09-14 16:18 | Emergency (ER) | payer MEDICARE, BC ==
[2018-07-15 01:03] VITALS: BMI 27.4
== END 2018-09-14 17:33 | disposition left against medical advice (07) ==
LOC: D.ER 16:18
DX: Z91.81 History of falling (principal)

== ENCOUNTER 2018-09-20 18:40 | Inpatient (IN) | payer BC, MEDICARE ==
[~2018-09-20] VITALS: Ht 170.2 cm; Wt 76.2 kg
--- NOTE | 2018-09-20 19:05 | NUR ---
FSBS READING "HI"
[2018-09-20 19:31] LABS: BASOPHILS 0.1 % (0-2); EOSINOPHILS 0.8 % (0-7); HEMATOCRIT 38.7 % (36.0-48.0); HEMOGLOBIN 13.1 g/dL (12-16); IMMATURE GRANULOCYTES 0.4 % (0-5); LYMPHOCYTES 26.4 % (15-50); MCH 27.3 pg (26.0-34.0); MCHC 33.9 g/dL (31.0-37.0); MCV 80.8 fL (80.0-100.0); MEAN PLATELET VOLUME 9.7 fL (7.4-10.4); MONOCYTES 5.5 % (2-11); NEUTROPHILS 66.8 % (40-80); PLATELET COUNT 350 10x3/uL (130-400); RBC 4.79 10x6/uL (4.00-5.40); RDW 14.7 % (11.5-14.5)
[2018-09-20 19:44] LABS: KETONE - SERUM NEGATIVE (NEGATIVE)
[2018-09-20 19:52] LABS: APPEARANCE CLEAR (CLEAR); BILIRUBIN NEGATIVE (NEGATIVE); COLOR STRAW (YELLOW); EPITHELIAL CELLS 0-5 /hpf (0-5); GLUCOSE 1000 mg/dL (NEGATIVE); KETONE NEGATIVE (NEGATIVE); NITRITE NEGATIVE (NEGATIVE); PROTEIN NEGATIVE (NEGATIVE); RED CELLS - URINE OCC /hpf (0-5); SPECIFIC GRAVITY 1.005 (1.005-1.020); UROBILINOGEN NORMAL (NORMAL); WHITE CELLS - URINE NSEEN /hpf (0-5)
[2018-09-20 20:00] LABS: ALBUMIN 3.2 g/dL (3.4-5.0); ALKALINE PHOSPHATASE 107 U/L (46-116); ALT (SGPT) 15 U/L (10-68); BILIRUBIN - TOTAL 0.24 mg/dL (0.2-1.3); CALCIUM 8.8 mg/dL (8.5-10.1); CARBON DIOXIDE 27.5 mmol/L (21.0-32.0); CHLORIDE - SERUM 89 mmol/L (98-107); CREATININE - SERUM 1.1 mg/dL (0.6-1.3); PROTEIN - SERUM 7.5 g/dL (6.4-8.2); SODIUM 129 mmol/L (136-145); UREA NITROGEN 10 mg/dL (7-18); eGFR NON AFRICAN AMERICAN 57 mL/min (90-120)
[2018-09-20 20:05] LABS: CALC OSMOLALITY 285 mosm/kg (275-300); GLUCOSE 595 mg/dL (74-106)
[2018-09-20 20:06] LABS: POTASSIUM - SERUM 2.7 mmol/L (3.5-5.1)
--- NOTE | 2018-09-20 20:08 | NUR ---
CRITICAL LAB- GLUCOSE 595, POTASSIUM 2.7
--- NOTE | 2018-09-20 21:01 | NUR ---
PT REFUSING ABG AT THIS TIME. MD VEGA INFORMED
--- NOTE | 2018-09-20 21:15 | NUR ---
IV TO L FOREARM INFILTRATED, IV DISCONTINUED.
--- NOTE | 2018-09-20 21:45 | NUR ---
PT AMBULATED TO RESTROOM WITH A STEADY GAIT.
--- NOTE | 2018-09-20 22:12 | NUR ---
FSBS 341
[2018-09-20] MEDS ORDERED: NORCO 10-325 TA1 TAB PO (22:23)
--- NOTE | 2018-09-20 22:50 | NUR ---
RECEIVED TO FLOOR FROM ER, ORIENTED TO ROOM, CALL LIGHT IN REACH, BED LOWEST POSITION, DENIES NEEDS, NO S/S OF DISTRESS NOTED, WILL CONITNUE TO MONITOR
[2018-09-20 23:27] VITALS: BP 124/73; BMI 26.3
[2018-09-21] VITALS: BP 132/64
[2018-09-21 01:04] LABS: CALC OSMOLALITY 278 mosm/kg (275-300); CALCIUM 8.7 mg/dL (8.5-10.1); CARBON DIOXIDE 30.5 mmol/L (21.0-32.0); CHLORIDE - SERUM 94 mmol/L (98-107); CREATININE - SERUM 0.8 mg/dL (0.6-1.3); GLUCOSE 342 mg/dL (74-106); SODIUM 133 mmol/L (136-145); UREA NITROGEN 10 mg/dL (7-18); eGFR NON AFRICAN AMERICAN 82 mL/min (90-120)
[2018-09-21 01:05] LABS: POTASSIUM - SERUM 2.9 mmol/L (3.5-5.1)
[2018-09-21 03:00] VITALS: BP 106/55
--- NOTE | 2018-09-21 09:00 | NUR ---
RECEIVED REPORT. ASSUMED CARE OF PATIENT. CALL LIGHT WITHIN REACH. PATIENT UP AMBUALATING AROUND ROOM. NO DISTRESS. DENIES NEEDS AT THIS TIME.
[2018-09-21 09:37] VITALS: BP 108/53
--- NOTE | 2018-09-21 11:54 | NUR ---
FSBS 332. 8 UNITS HUMULIN ADMINISTERED PER SLIDING SCALE. NO DISTRESS.
--- NOTE | 2018-09-21 12:36 | NUR ---
RECEIVED CALL FROM TO NOT GIVE METFORMIN DUE TO LACTIC ACID LEVEL IS ELEVATED. INFORMED THAT METFORMIN HAS NOT BEEN GIVEN DUE THE PHARMACY HAS NOT BROUGHT THE MEDICATION YET.
[2018-09-21 13:00] VITALS: BP 138/51
--- NOTE | 2018-09-21 13:30 | NUR ---
PATIENT OFF UNIT IN WHEELCHAIR WITH HER FAMILY AT THIS TIME. NO DISTRESS WHEN LEAVING UNIT.
--- NOTE | 2018-09-21 14:44 | NUR ---
RESTING IN BED WITH EYES CLOSED. RESP EVEN AND UNLABORED. NO DISTRESS. EASILY AROUSED.
[2018-09-21 15:12] VITALS: BP 125/66
--- NOTE | 2018-09-21 17:14 | NUR ---
FSBS 268. 6 UNITS HUMULIN ADMINISTERED PER SLIDING SCALE AT THIS TIME. NO DISTRESS. CALL LIGHT WITHIN REACH.
[2018-09-21 19:00] VITALS: BP 129/76
--- NOTE | 2018-09-21 19:30 | NUR ---
RECEIVED REPORT, ASSUMED CARE, A&O, DENIES NEEDS, NO S/S OF DISTRESS NOTED, CALL LIGHT IN REACH, BED LOWEST POSITION, FAMILY AT BEDSIDE, REQUESTED TO GO ON A WALK TO GET FRESH AIR WITH FAMILY, WC PROVIDED, WILL CONTINUE POC
[2018-09-22] VITALS: BP 130/58
[2018-09-22 03:00] VITALS: BP 180/63
--- NOTE | 2018-09-22 03:19 | NUR ---
I AGREE WITH ENGRAVER TENDER ASSESSMENT. WILL CONTINUE TO MONITOR.
[2018-09-22 08:00] VITALS: BP 126/78
[2018-09-22 09:47] LABS: BASOPHILS 0.2 % (0-2); EOSINOPHILS 1.3 % (0-7); HEMATOCRIT 34.9 % (36.0-48.0); HEMOGLOBIN 11.2 g/dL (12-16); IMMATURE GRANULOCYTES 0.4 % (0-5); LYMPHOCYTES 31.6 % (15-50); MCH 26.7 pg (26.0-34.0); MCHC 32.1 g/dL (31.0-37.0); MEAN PLATELET VOLUME 9.6 fL (7.4-10.4); MONOCYTES 6.1 % (2-11); NEUTROPHILS 60.4 % (40-80); PLATELET COUNT 334 10x3/uL (130-400); RDW 15.2 % (11.5-14.5); WBC 10.7 10x3/uL (4.8-10.8)
[2018-09-22 09:54] LABS: MCV 83.1 fL (80.0-100.0)
[2018-09-22 10:04] LABS: CALC OSMOLALITY 287 mosm/kg (275-300); CALCIUM 7.7 mg/dL (8.5-10.1); CARBON DIOXIDE 26.9 mmol/L (21.0-32.0); CHLORIDE - SERUM 104 mmol/L (98-107); CREATININE - SERUM 0.7 mg/dL (0.6-1.3); GLUCOSE 307 mg/dL (74-106); MAGNESIUM - SERUM 1.7 mg/dL (1.8-2.4); SODIUM 139 mmol/L (136-145); UREA NITROGEN 7 mg/dL (7-18); eGFR NON AFRICAN AMERICAN > 90 mL/min (90-120)
[2018-09-22 10:07] LABS: POTASSIUM - SERUM 2.6 mmol/L (3.5-5.1)
[2018-09-22 12:00] VITALS: BP 130/77
--- NOTE | 2018-09-22 15:15 | NUR ---
PT AOX4 RESP EVEN AND NONLABORED PT DENIES NEEDS AT THIS TIME WILL CONTINUE TO MONITOR
--- NOTE | 2018-09-22 15:40 | MORECARE ---
CASE MANAGEMENT DISCHARGE SUMMARY PATIENT: KENYON WATSON S UNIT: [id number] ADM DATE: 09/21/18 AGE: 43 : 71 SEX: F ROOM/BED: D.1211 AUTHOR: CARLTON GOODEN PHYSICIAN: REFERRING PHYSICIAN: AIYANA WARD MD DATE OF SERVICE: 09/22/18 Discharge Plan Patient Name: KENYON WATSON [facility] [facility] 1975 Planned Disposition: Home Anticipated Discharge Date: 09/22/18 Discharge Date: Expected LOS: 1 Initial Reviewer: [email or web address] Initial Review Date: 09/20/2018 Generated: 09/22/18 4:40 pm DCPIA - Discharge Planning Initial Assessment Updated by [email or web address]: Nikki Villegas on 09/22/18 3:39 pm * Is the patient Alert and Oriented? Yes * How many steps to enter\exit or inside your home? 2 w/rail * PCP Dr. Joiner * Pharmacy [facility] on [address] * Preadmission Environment Home with Family * ADLs Independent * Equipment Glucometer Nebulizer * List name and contact numbers for known caregivers / representatives who currently or will assist patient after discharge: Jesus Watson, spouse, * Verbal permission to speak to the caregivers and representatives has been obtained from the patient. Yes * Community resources currently utilized None * Additional services required to return to the preadmission environment? No * Can the patient safely return to the preadmission environment? Yes * Has this patient been hospitalized within the prior 30 days at any hospital? No Patient Name: KENYON WATSON Page [id number] at 1540 All edits/amendments must be made on the electronic document DICTATION DATE: 09/22/181539 BUFFING AND POLISHING WHEEL REPAIRER: MANI 09/22/18 1540 RPT#: [id number] DC DATE: STATUS: ADM IN [facility] [address] [place] [address] END OF REPORT
[2018-09-22 15:45] VITALS: Ht 170.2 cm; Wt 76.2 kg
[2018-09-22 16:00] VITALS: BP 157/84
--- NOTE | 2018-09-22 16:12 | MORECARE ---
CASE MANAGEMENT DISCHARGE SUMMARY PATIENT: KENYON WATSON UNIT: [id number] ADM DATE: 09/21/18 AGE: 43 : 71 SEX: F ROOM/BED: D.1211 AUTHOR: BERKLEYDOC PHYSICIAN: REFERRING PHYSICIAN: AIYANA WARD MD DATE OF SERVICE: 09/22/18 Discharge Plan Patient Name: KENYON WATSON Facility: [facility]:[place] : 1975 Planned Disposition: Home Anticipated Discharge Date: 09/22/18 Discharge Date: Expected LOS: 1 Initial Reviewer: [email or web address] Initial Review Date: 09/20/2018 Generated: 09/22/18 5:12 pm Comments DCP- Discharge Planning Updated by [email or web address]: Nikki Villegas on 09/22/18 3:[address] Patient Name: KENYON WATSON Admission Status: ER Accout number: [id number] Admission Date: 09-21-2018 : 1975 Admission Diagnosis: Attending: AIYANA WARD Current LOS: 1 Anticipated DC Date: 09-22-2018 Planned Disposition: Home Primary Insurance: [employer] OUT OF STATE Discharge Planning Comments: After obtaining consent, CM met with patient and her spouse about discharge planning / needs. Patient states her plan is to discharge to home. Denies the need for home health or other community services. States her mom, dad, and sister are all knowledgeable about administering insulin because they are all diabetic. States her , Jesus will drive her home upon hospital discharge. CM will continue to follow and assist as needed with discharge planning / needs. Well Shooter: Nikki Villegas DCPIA - Discharge Planning Initial Assessment Updated by [email or web address]: Nikki Villegas on 09/22/18 3:39 pm * Is the patient Alert and Oriented? Yes * How many steps to enter\exit or inside your home? 2 w/rail * PCP Dr. Joiner * Pharmacy [facility] on [address] * Preadmission Environment Home with Family * ADLs Independent * Equipment Glucometer Nebulizer * List name and contact numbers for known caregivers / representatives who currently or will assist patient after discharge: Jesus Watson, spouse, * Verbal permission to speak to the caregivers and representatives has been obtained from the patient. Yes * Community resources currently utilized None * Additional services required to return to the preadmission environment? No * Can the patient safely return to the preadmission environment? Yes * Has this patient been hospitalized within the prior 30 days at any hospital? No Last DP export: 09/22/18 2:40 p Patient Name: KENYON WATSON Page [id number] at 1612 All edits/amendments must be made on the electronic document DICTATION DATE: 09/22/181611 STITCH SEPARATOR: MANI 09/22/181611 RPT#: [id number] DC DATE: STATUS: ADM IN [facility] [address] [place] [address] END OF REPORT
--- NOTE | 2018-09-22 17:30 | NUR ---
DEMONSTRATED FOR PATIENT HOW TO CHECK BLOOD SUGAR WITH GLUCOMETER. PATIENT STATED, "I KNOW HOW TO DO THAT. MY MOM, MY DAD, AND MY SISTER ALL HAD DIABETES." DEMONSTRATED HOW TO DRAW UP AND ADMINISTER REGULAR INSULIN. PATIENT RETURNED DEMONSTRATION AND ADMIMISTERED INSULIN DOSE TO SELF.
--- NOTE | 2018-09-22 19:50 | NUR ---
FAMILY MEMBERS VISITING.
[2018-09-22 20:00] VITALS: BP 147/80
[2018-09-23] VITALS: BP 134/82
--- NOTE | 2018-09-23 02:36 | NUR ---
REST QUIETLY IN BED, CALL LIGHT IN REACH.
[2018-09-23 04:00] VITALS: BP 130/75
--- NOTE | 2018-09-23 06:22 | NUR ---
CHARGE NURSE EXPLAINED AND TAUGHT PT HOW TO SELF ADMINISTERED INSULIN, AND PT ADMINISTED INSULIN CORRECTLY
[2018-09-23 06:41] LABS: BASOPHILS 0.2 % (0-2); EOSINOPHILS 1.4 % (0-7); HEMATOCRIT 32.7 % (36.0-48.0); HEMOGLOBIN 10.5 g/dL (12-16); IMMATURE GRANULOCYTES 0.3 % (0-5); LYMPHOCYTES 36.4 % (15-50); MCH 26.7 pg (26.0-34.0); MCHC 32.1 g/dL (31.0-37.0); MCV 83.2 fL (80.0-100.0); MEAN PLATELET VOLUME 9.6 fL (7.4-10.4); MONOCYTES 6.7 % (2-11); PLATELET COUNT 307 10x3/uL (130-400); RBC 3.93 10x6/uL (4.00-5.40); RDW 15.5 % (11.5-14.5); WBC 9.8 10x3/uL (4.8-10.8)
--- NOTE | 2018-09-23 07:00 | NUR ---
ROUNDING DONE WITH PATIENT HAVING NO NEEDS VOICED AT THIS TIME. STATES THAT SHE MIGHT BE GOING HOME. ON HEART MONITOR SHOWING SR, HR 61. RIGHT FA PIV SEEN WITH NS INFUSING AT 100 CC/HR WITHOUT PROBLEMS. ON EP, AWAITING LAB RESULTS. WILL MONITOR FOR ANY NEEDS.
[2018-09-23 07:25] LABS: CALCIUM 7.7 mg/dL (8.5-10.1); CARBON DIOXIDE 25.8 mmol/L (21.0-32.0); CHLORIDE - SERUM 105 mmol/L (98-107); SODIUM 140 mmol/L (136-145); UREA NITROGEN 7 mg/dL (7-18)
[2018-09-23 07:26] LABS: CALC OSMOLALITY 278 mosm/kg (275-300); CREATININE - SERUM 0.5 mg/dL (0.6-1.3); GLUCOSE 140 mg/dL (74-106); POTASSIUM - SERUM 3.5 mmol/L (3.5-5.1); eGFR NON AFRICAN AMERICAN > 90 mL/min (90-120)
[2018-09-23] MEDS ORDERED: GLUCOTROL 5 MG T5 MG PO (07:33)
[2018-09-23 07:55] VITALS: BP 152/71
--- NOTE | 2018-09-23 12:24 | NUR ---
VERBAL AND WRITTEN DISCHARGE INSTRUCITON GIVEN TO PATIENT AND SPOUSE. SALINE LOCK REMOVED WITH CATH TIP INTACT. DISCHARGED HOME VIA WHEELCHAIR.
--- NOTE | 2018-09-24 09:49 | MORECARE ---
CASE MANAGEMENT DISCHARGE SUMMARY PATIENT: KENYON WATSON UNIT: [id number] ADM DATE: 09/21/18 AGE: 43 : 71 SEX: F ROOM/BED: D.1211 AUTHOR: BERKLEY,DOC PHYSICIAN: REFERRING PHYSICIAN: AIYANA WARD MD DATE OF SERVICE: 09/24/18 Discharge Plan Patient Name: KENYON WATSON Facility: [facility]:[place] : 1975 Planned Disposition: Home Anticipated Discharge Date: 09/22/18 Discharge Date: 09/23/2018 Expected LOS: 1 Initial Reviewer: [email or web address] Initial Review Date: 09/20/2018 Generated: 09/24/18 10:48 am Comments DCP- Discharge Planning Updated by [email or web address]: Nikki Villegas on 09/22/18 3:[address] Patient Name: KENYON WATSON Admission Status: ER Accout number: [id number] Admission Date: 09-21-2018 : 1975 Admission Diagnosis: Attending: AIYANA WARD Current LOS: 1 Anticipated DC Date: 09-22-2018 Planned Disposition: Home Primary Insurance: [employer] OUT OF STATE Discharge Planning Comments: After obtaining consent, CM met with patient and her spouse about discharge planning / needs. Patient states her plan is to discharge to home. Denies the need for home health or other community services. States her mom, dad, and sister are all knowledgeable about administering insulin because they are all diabetic. States her , Jesus will drive her home upon hospital discharge. CM will continue to follow and assist as needed with discharge planning / needs. Procedure Analyst: Nikki Villegas DCPIA - Discharge Planning Initial Assessment Updated by [email or web address]: Nikki Villegas on 09/22/18 3:39 pm * Is the patient Alert and Oriented? Yes * How many steps to enter\exit or inside your home? 2 w/rail * PCP Dr. Joiner * Pharmacy [facility] on [address] * Preadmission Environment Home with Family * ADLs Independent * Equipment Glucometer Nebulizer * List name and contact numbers for known caregivers / representatives who currently or will assist patient after discharge: Jesus Watson, spouse, * Verbal permission to speak to the caregivers and representatives has been obtained from the patient. Yes * Community resources currently utilized None * Additional services required to return to the preadmission environment? No * Can the patient safely return to the preadmission environment? Yes * Has this patient been hospitalized within the prior 30 days at any hospital? No Last DP export: 09/22/18 3:12 p Patient Name: KENYON WATSON Page [phone] at 0949 All edits/amendments must be made on the electronic document DICTATION DATE: 09/24/18947 AUTOMATIC THREAD WINDER: DM 09/24/18947 RPT#: [id number] DC DATE:09/23/18 STATUS: DIS IN [facility] [address] [place] [address] END OF REPORT
== END 2018-09-23 12:26 | disposition home or self-care (01) | DRG 638 ==
LOC: D.ER 18:40 → D.M3 22:14 → OBSVTIME 22:14 → D.M3 09-21 14:44
PROVIDERS: Emergency Medicine; Family Medicine; Internal Medicine Nephrology; ADMIT Emergency Medicine
DX: E11.65 Type 2 diabetes mellitus with hyperglycemia (principal); E87.2 Acidosis; E87.1 Hypo-osmolality and hyponatremia; F17.213 Nicotine dependence, cigarettes, with withdrawal; E87.6 Hypokalemia; E83.42 Hypomagnesemia

== ENCOUNTER → 2018-10-15 18:49 | Outpatient (CLI) | payer BC, MEDICARE ==
[2018-09-22 15:45] VITALS: BMI 26.3
[~2018-10-15 18:49] MED LIST changes: +GLUCOTROL 5 MG T5 MG PO; +NORCO 10-325 TA1 TAB PO
== END | disposition home or self-care (01) ==
LOC: D.MAMMO 10:00
DX: Z12.31 Encounter for screening mammogram for malignant neoplasm of breast (principal)

== ENCOUNTER 2018-12-10 10:25 | Day surgery (SDC) | payer BC, MEDICARE ==
[2018-12-05 10:29] LABS: BASOPHILS 0.2 % (0-2); EOSINOPHILS 1.7 % (0-7); HEMATOCRIT 36.6 % (36.0-48.0); HEMOGLOBIN 11.3 g/dL (12-16); IMMATURE GRANULOCYTES 0.2 % (0-5); MCH 24.4 pg (26.0-34.0); MCHC 30.9 g/dL (31.0-37.0); MEAN PLATELET VOLUME 9.1 fL (7.4-10.4); MONOCYTES 6.3 % (2-11); NEUTROPHILS 68.6 % (40-80); PLATELET COUNT 398 10x3/uL (130-400); RBC 4.63 10x6/uL (4.00-5.40); RDW 14.2 % (11.5-14.5); WBC 12.3 10x3/uL (4.8-10.8)
[2018-12-05 10:35] LABS: CALC OSMOLALITY 279 mosm/kg (275-300); CALCIUM 8.9 mg/dL (8.5-10.1); CARBON DIOXIDE 30.4 mmol/L (21.0-32.0); CHLORIDE - SERUM 101 mmol/L (98-107); CREATININE - SERUM 0.5 mg/dL (0.6-1.3); GLUCOSE 148 mg/dL (74-106); POTASSIUM - SERUM 3.4 mmol/L (3.5-5.1); SODIUM 139 mmol/L (136-145); UREA NITROGEN 11 mg/dL (7-18); eGFR NON AFRICAN AMERICAN > 90 mL/min (90-120)
[~2018-12-10] VITALS: Ht 170.2 cm; Wt 78.0 kg
[~2018-12-10 10:25] MED LIST changes: +CELEXA20 MG PO
[2018-12-10] MEDS ORDERED: VITAMIN D250000 UNIT PO (10:45)
[2018-12-10 10:52] VITALS: BP 103/65; Ht 170.2 cm; Wt 78.0 kg
[2018-12-10] MEDS ORDERED: NEURONTIN 300300 MG PO (10:52)
[2018-12-10 11:18] LABS: HCG URINE NEGATIVE (NEGATIVE)
--- NOTE | 2018-12-10 16:14 | NUR ---
PAGED DR. DAVIS AT 1553, CALLED BACK SAYING ON HER WAY. DID NOT GET IN ROOM UNTIL 1611
--- NOTE | 2018-12-10 18:22 | NUR ---
REPORT HANDED OFF TO ANEESH OVALLE RN
--- NOTE | 2018-12-10 18:25 | NUR ---
CARE ASSUMED FROM Jing STAPLETON RN
--- NOTE | 2018-12-10 19:55 | NUR ---
IV REMOVED PRESSURE HELD AND DRESSING APPLIED
== END 2018-12-10 20:15 | disposition home or self-care (01) ==
LOC: D.OPS 10:25
PROVIDERS: ATTEND Obstetrics & Gynecology
DX: R10.2 Pelvic and perineal pain (principal); D25.9 Leiomyoma of uterus, unspecified; N93.8 Other specified abnormal uterine and vaginal bleeding; Z01.812 Encounter for preprocedural laboratory examination

== ENCOUNTER → 2018-12-23 16:48 | Outpatient (CLI) | payer BC, MEDICARE ==
[2018-12-10 10:52] VITALS: BMI 27.0
[~2018-12-23 16:48] MED LIST changes: +VITAMIN D250000 UNIT PO
== END | disposition home or self-care (01) ==
LOC: D.MAMMO 12-10 10:00 → D.US 12-10 11:00 → D.MAMMO 10:00
PROVIDERS: ATTEND Obstetrics & Gynecology
DX: N63.11 Unspecified lump in the right breast, upper outer quadrant (principal)

== ENCOUNTER 2019-05-02 18:23 | Emergency (ER) | payer BC, MEDICARE ==
[~2019-05-02] VITALS: Ht 170.2 cm; Wt 86.4 kg
[2019-05-02 18:27] VITALS: Ht 170.2 cm; Wt 86.4 kg
[2019-05-02] MEDS ORDERED: TALWIN NX1 TAB PO (19:22)
[2019-05-02] MEDS ORDERED: BACLOFEN20 M1 PO (19:22)
[2019-05-02 20:05] VITALS: BP 154/86
== END 2019-05-02 20:05 | disposition home or self-care (01) ==
LOC: D.ER 18:23
DX: M54.2 Cervicalgia (principal); G89.29 Other chronic pain

== ENCOUNTER → 2019-06-19 13:21 | Outpatient (CLI) | payer BC, MEDICARE ==
[2019-05-02 18:27] VITALS: BMI 29.8
[~2019-06-19 13:21] MED LIST changes: +BACLOFEN20 M1 PO; +LIPITOR40 MG PO; +OMNICEF300 MG PO; +PLAVIX75 MG PO; +TALWIN NX1 TAB PO; +XIGDUO XR 5 MG1 EAC1; +ZITHROMAX250 MG PO
== END | disposition home or self-care (01) ==
LOC: D.MRI 13:00
PROVIDERS: ATTEND Orthopaedic Surgery
DX: M75.121 Complete rotator cuff tear or rupture of right shoulder, not specified as traumatic (principal)

== ENCOUNTER 2019-07-09 18:36 | Inpatient (IN) | payer BC, MEDICARE ==
[~2019-07-09] VITALS: Ht 170.2 cm; Wt 85.4 kg
--- NOTE | ~2019-07-09 | HEMODYNAMI ---
PATIENT:KENYON WATSON MEDICAL RECORD: [id number] : 71 LOCATION:[facility].2125 ADMISSION DATE: 07/09/19 Generatedon:07/13/201912:42 Patient name: KENYON WATSON Patient #: [id number] SSN: [id number] : 1975 Date of study: 07/13/2019 Page: Of Hemodynamic Procedure Report Patient Data Patient Demographics Procedure consent was obtained First Name: KENYON Gender: Female Last Name: SHIRLEY : 1975 Middle Initial: S Age: 44 year(s) Patient #: [id number] Race: SSN: [id number] Additional ID: [id number] Contact details Address: [address] [place] [address] State: [place] City: [facility] Zip code: [address] Past Medical History Allergies Allergen Reaction Date Comments Reported Other allergy 07/13/2019 [facility] [place] Admission Admission Data Admission Date: 07/09/2019 Admission Time: 20:49 Arrival Date: 07/13/2019 Arrival Time: 0:00 Room #: D.2125 [facility] #: [id number] Height (in.): 66.93 BSA: 1.98 (m2) Height (cm.): 170 BMI: 29.76 (kg/m2) Weight (lbs.): 189.6 Weight (kg.): 86 Lab Results Lab Result Date: 07/13/2019 Lab Result Time: 0:00 Biochemistry Name Units Result Min Max BUN mg/dl 5 -*(----)-- 7 18 Creatinine mg/dl 0.5 -*(----)-- 0.6 1.3 eGFR ml/min 90 --(*---)-- 90 120 NONAFRICAN CBC Name Units Result Min Max Hemoglobin g/dl 9.5 *-(----)-- 13.5 17.5 Procedure Procedure Types Cath Procedure Diagnostic Procedure LHC LHC w/Coronaries FFR/IVUS FFR Initial Sedation Charges Moderate Sedation up to 15 minutes PCI Procedure Coronary Stent Coronary Stent Initial Procedure Description Procedure Date Procedure Date: 07/13/2019 Procedure Start Time: 12:14 Procedure End Time: 12:40 Procedure Staff Name Function Adria Khan MD Performing Physician Dinora Ryan RT Monitor Marian Ramirez RT Monitor Stephie Valenzuela RN Nurse Deana Pineda RT Scrub Indication Chest pain Procedure Data Cath Procedure Fluoroscopy Diagnostic fluoroscopy Total fluoroscopy Time: 4.6 time: 4.6 min min Diagnostic fluoroscopy Total fluoroscopy dose: 559 dose: 559 mGy mGy Contrast Material Contrast Material Type Amount (ml) Isovue 300 101 Entry Location Entry Primary Successful Side Size Upsize Upsize Entry Closure Mauricio ccessful Closure Location (Fr) 1 (Fr) 2 (Fr) Remarks Device Remarks Radial Right 6 Fr Mechanical artery Short Compression Estimated blood loss: 10 ml Diagnostic catheters Device Type Used For End Catheter Placement DIAGNOSTIC [place] 110cm 5 Procedure Fr catheter ([id number]) DIAGNOSTIC AR2 MOD 5 Fr Procedure catheter ([id number]) Procedure Complications No complications Procedure Medications Medication Administration Route Dosage Oxygen etCO2 Nasal cannula 4 l/min Lidocaine 2% added to field 20 Heparin Flush Bag added to field 2 bags (1000units/500ml NS) 0.9% NaCl I.V. 100 ml/hr Radial Cocktail I.A. 1 syringe (Verapamil 2mg/Nitro 400mcg/Heparin 1500units) Versed I.V. 2 mg Fentanyl I.V. 50 mcg Versed I.V. 1 mg Heparin Bolus I.V. 4000 units Fentanyl I.V. 50 mcg Hemodynamics Rest BSA: 1.98 (m2) HGB: 9.5 (g/dl) O2 Consumption: Estimated: 189.53 (ml/min) O2 Con sumption indexed: Estimated:95.72 (ml/min/m) Heart Rate: 60 (bpm) Snapshots Pre Cath Intra NCS Post Cath Vital Signs Time Heart Resp SPO2 etCO2 NIBP (mmHg) Rhythm Pain Sedation Rate (ipm) (%) (mmHg) Status Level (bpm) 11:58:28 61 19 94 0 139/77(120) NSR 0 (11) 10(A) , No pain 12:02:46 62 14 95 0 147/76(118) NSR 0 (11) 10(A) , No pain 12:07:02 62 30 94 0 139/84(115) NSR 0 (11) 10(A) , No pain 12:11:19 61 19 93 0 141/80(123) NSR 0 (11) 10(A) , No pain 12:15:35 63 23 92 0 141/84(123) NSR 0 (11) 10(A) , No pain 12:19:44 66 21 83 0 114/75(95) NSR 0 (11) 9(A) , No pain 12:23:50 65 15 92 0 129/77(90) NSR 0 (11) 9(A) , No pain 12:28:02 65 33 92 0 129/75(88) NSR 0 (11) 9(A) , No pain 12:32:16 64 33 93 0 122/71(93) NSR 0 (11) 10(A) , No pain 12:36:28 62 18 93 0 123/70(89) NSR 0 (11) 10(A) , No pain 12:40:28 0 No Cuff NSR 0 (11) 10(A) , No pain Medications Time Medication Route Dose Verified Delivered Reason Not es Effectiveness by by 12:05:22 Oxygen etCO2 4 l/min Adria Card used for Nasal Erin Valenzuela RN procedure cannula 12:05:29 Lidocaine 2% added 20ml Adria Covington for local to vial Erin Khan MD anesthetic field 12:05:35 Heparin Flush added 2 bags Adria Covington used for Bag to Erin Khan MD procedure (1000units/500ml field NS) 12:05:44 0.9% NaCl I.V. 100 Adria Card Per physician ml/hr Erin Valenzuela RN 12:13:50 Versed I.V. 2 mg Adria Card for sedation Erin Valenzuela RN 12:13:56 Fentanyl I.V. 50 mcg Adria Riveraie for sedation Erin Valenzuela RN 12:17:14 Radial Cocktail I.A. 1 Adria Covington for (Verapamil syringe Erin Khan MD vasodilation 2mg/Nitro 400mcg/Heparin 1500units) 12:17:20 Versed I.V. 1 mg Adria Riveraie for sedation Erin Valenzuela RN 12:17:52 Fentanyl I.V. 50 mcg Adria Buffie for sedation Erin Valenzuela RN 12:21:53 Heparin Bolus I.V. 4000 Adria Card for daryl ified units Erin Valenzuela RN anticoagulation with dr khan Procedure Log Time Note 11:31:55 Informed consent obtained and on chart 11:33:19 Arrival Date: 07/13/2019 12:00:00 AM 11:33:58 Patient Height : 66.93 inches 11:34:05 Patient Weight : 189.6 lbs 11:34:59 Lab Result : eGFR NONAFRICAN 90 ml/min 11:34:59 Lab Result : Hemoglobin 9.5 g/dl 11:34:59 Lab Result : BUN 5 mg/dl 11:34:59 Lab Result : Creatinine 0.5 mg/dl 11:36:13 Indication : Chest pain 11:36:41 Procedure Status Urgent Heart Cath (IP). 11:36:43 Time tracking: Regular hours (M-F 7:00 - 5:00) 11:36:46 Dinora Ryan RT(R) sent for patient. Start room use. 11:36:53 Plan of Care:Hemodynamics will remain stable., Cardiac rhythm will remain stable., Comfort level will be maintained., Respiratory function will remain adequate., Patient/ family verbilizes understanding of procedure., Procedure tolerated without complication., Recovers from procedure without complications.. 11:37:04 ACC Patient presents with Stable Angina CCS Anginal Class 2--Slight limitation of ordinary activity. 11:38:32 ACCPatient has been prescribed/administered the following anti-anginal medication within the last 2 weeks: None 11:40:34 Risk of Mortality: 1.3 11:40:41 Risk of blood transfusion: 13.6 11:40:45 Risk of STACEY: 2.8 11:40:52 Lab results completed and on chart. 11:49:18 Patient received from Med II to CCL 1 Alert and oriented. Tansferred to table in Supine position. 11:49:22 Warm blankets applied, and maria de jesus hugger turned on for patient comfort. 11:49:23 Correct patient and procedure confirmed by team. 11:49:25 ECG and BP/O2 sat monitors applied to patient. 11:49:55 H&P Date Dictated: 07/13/2019 Within 30 days and on chart.. 11:49:57 Pre-procedure instructions explained to patient. 11:49:58 Pre-op teaching completed and patient verbalized understanding. 11:50:08 Family in patients room. 11:50:11 Patient NPO since Midnight. 11:50:23 Patient allergic to Other allergyNKDA 11:50:48 Is the patient allergic to Iodine/contrast media? No. 11:50:50 Was the patient premedicated? Yes 11:50:52 Is patient on blood thinner?Yes 11:50:56 ACC The patient was administered the following blood thiners within the last 24 hours: ACCPlavix 11:50:59 Patient diabetic? Yes. 11:51:01 If diabetic: On Metformin? No 11:51:06 Patient not . Patient has had tubal. 11:51:07 ----Pre-sedation anethsthesia assessment.---- 11:51:15 Previous problem with sedation/anesthesia? No ? 11:51:18 Snore? Yes 11:51:21 Sleep apnea? No 11:51:25 Deviated septum? No 11:51:26 Opens mouth fully? Yes 11:51:28 Sticks out tongue? Yes 11:51:36 Airway obstruction? Yes COPD 11:56:24 Dentures? Yes UPPER IN TIGHT 11:56:32 Pre procedure: right dorsailis pedis pulse 1+ Palpable, but thready & weak; easily obliterated 11:56:43 Modified Stewart's test Ulnar > 7 seconds. 11:56:52 Patient pain scale 0/10 ?. 11:57:05 IV patent on arrival in left forearm with 0.9% NaCl at KVO. 11:57:14 Vital chart was started 11:57:28 Baseline sample Acquired. 11:57:44 Rhythm: sinus rhythm 11:57:46 Full Disclosure recording started 11:57:47 - 11:58:07 Stress Test: no; N/A ? 11:58:26 Right Radial & Right Groin area was prepped with chlora-prep and draped in sterile fashion 11:58:36 Alarms reviewed by R. N. 11:58:38 Sharps counted by scrub and verified by R.N. 11:59:31 Use device set Radial Dx or PCI 11:59:35 ACIST Syringe (85490) opened to sterile field. 11:59:36 Medline Cath Pack ([id number]) opened to sterile field. 11:59:37 Bag Decanter (2002S) opened to sterile field. 11:59:38 ACIST Hand Control (99006) opened to sterile field. 11:59:39 ACIST Manifold (48024) opened to sterile field. 11:59:39 Tegaderm 4 x 4 (1626W) opened to sterile field. 11:59:40 MBrace Wrist Support ([id number]) opened to sterile field. 11:59:44 EMERALD Guide Wire (586-481) opened to sterile field. 11:59:45 SHEATH 6FR RAIN (3030852) opened to sterile field. 12:05:22 Oxygen 4 l/min etCO2 Nasal cannula was administered by Stephie Valenzuela RN; used for procedure; Verbal order read back and verified. 12:05:29 Lidocaine 2% 20ml vial added to field was administered by Adria Khan MD; for local anesthetic; Verbal order read back and verified. 12:05:35 Heparin Flush Bag (1000units/500ml NS) 2 bags added to field was administered by Adria Khan MD; used for procedure; Verbal order read back and verified. 12:05:44 0.9% NaCl 100 ml/hr I.V. was administered by Stephie Valenzuela RN; Per physician; Verbal order read back and verified. 12:07:36 Zero performed for pressure channel P1 12:10:12 Physician paged 12:10:13 Physician responded to page. 12:11:22 Physician arrived 12:11:23 Physician arrived 12:11:24 --------ALL STOP TIME OUT------ 12:11:25 Final Timeout: patient, procedure, and site verified with staff and physician. All members of the team are in agreement. 12:11:30 Right Radial & Right Groin site verified by team. 12:11:40 Fire Safety Assessment: A--An alcohol-based skin anteseptic being used preoperatively., C--Open oxygen or nitrous oxide is being used., D--An ESU, laser, or fiber-optic light is being used. 12:11:46 Physical assessment completed. ASA score P 2 - A patient with mild systemic disease as per Adria Khan MD. 12:11:52 1) 90+ Normal kidney functon but urine findings or structural abnormalities or genetic trait point to kidney disease. 12:11:58 Maximum allowable contrast dose (3.7 X eGFR X 0.75)250 ml. 12:12:04 Sedation plan: IV Moderate Sedation Medication:Versed, Fentanyl 12:13:50 Versed 2 mg I.V. was administered by Stephie Valenzuela RN; for sedation; Verbal order read back and verified. 12:13:56 Fentanyl 50 mcg I.V. was administered by Stephie Valenzuela RN; for sedation; Verbal order read back and verified. 12:14:44 Procedure started. 12:14:54 Local anesthetic to right radial artery with Lidocaine 2% by Adria Khan MD.INITIAL ACCESS ONLY 12:15:40 A 6 Fr Short sheath was inserted into the Right Radial artery 12:16:14 A DIAGNOSTIC [place] 110cm 5 Fr catheter ([id number]) was advanced over the wire and used for Procedure. 12:17:11 LV gram done using WISE 12:17:14 Radial Cocktail (Verapamil 2mg/Nitro 400mcg/Heparin 1500units) 1 syring e I.A. was administered by Adria Khan MD; for vasodilation; Verbal order read back and verified. 12:17:20 Versed 1 mg I.V. was administered by Stephie Valenzuela RN; for sedation; Verbal order read back and verified. 12:17:20 Injector settings: Ml/sec: 5, Volume: 15, 12:17:30 EF : 50 % 12:17:41 LCA angiography performed. 12:17:52 Fentanyl 50 mcg I.V. was administered by Stephie Valenzuela RN; for sedation; Verbal order read back and verified. 12:17:54 Injector settings: Ml/sec: 3, Volume: 5, 12:18:41 Catheter exchanged over wire. 12:19:02 A DIAGNOSTIC AR2 MOD 5 Fr catheter ([id number]) was advanced over the wire and used for Procedure. 12:19:57 RCA angiography performed. 12:20:14 Catheter removed. 12:20:27 GUIDE 6FR AR 2.0 catheter ([id number]) opened to sterile field. 12:20:40 GUIDE 6FR XBLAD 3.5 catheter ([id number]) opened to sterile field. 12:21:00 Carter Verrata Plus pressure wire (92167U) opened to sterile field. 12:21:01 INFLATOR Merit BasixCompak (BJ2999) opened to sterile field. 12::16 6 Fr XBLAD3.5 guide catheter was inserted over the wire 12::24 FFR/IFR wire advanced. 12::53 Heparin Bolus 4000 units I.V. was administered by Stephie Valenzuela RN; for anticoagulation; verified with dr khan Verbal order read back and verified. 12::16 ACCDominant side:Right 12:22:39 Wire advanced across lesion. 12:23:11 mLAD lesion measured at 0.80 with IFR 12:23:35 Pre PCI Site: [place] mLAD has 80% stenosis. 12:26:03 Place stent Inflation Number: 1 A JUHI RX 3.0 x 15 stent ([id number]) was prepped and advanced across the Mid LAD . The stent was deployed at 17 DONALD for 0:00 (min:sec) . 12:26:23 Post PCI Site: [place] mLAD has 0% stenosis. 12:26:34 Stent catheter was removed intact over wire. 12:26:36 Wire removed. 12:26:37 Guide catheter removed. 12:27:10 6 Fr AR2 guide catheter was inserted over the wire 12:27:20 FFR/IFR wire advanced. 12:30:31 Wire advanced across lesion. 12:30:54 pRCA lesion measured at 0.94 with IFR 12:31:56 Wire removed. 12:31:57 Guide catheter removed. 12:32:24 ZEPHYR REGULAR TR BAND (861420) opened to sterile field. 12:32:40 Sheath removed intact; hemostasis achieved with Mechanical Compression to the Right Radial artery. 12:32:44 Procedure ended.(Physican Out) 12:33:12 Contrast amount:Isovue 300 101ml. 12:33:19 Maximum allowable dose exceeded? No. 12:33:37 ACT drawn and resulted at 217 seconds. (normal therapeutic range 180-24 0 seconds). 12:34:05 Fluoroscopy time 04.60 minutes. 12:34:13 Fluoroscopy dose: 559 mGy 12:34: Flurop Dose total: 559 12:34: Dose Area Product 07805 mGy/cm. 12:34:24 Sharps counted by scrub and verified by R.N. 12:34:28 [place]ie band inflated with 8cc of air. 12:34:31 Insertion/operative site no bleeding no hematoma. 12:34:41 Post right radial artery:stable 12:34:45 Post Procedure Pulses reassessed and unchanged 12:34:52 Post-procedure physical assessment completed. ASA score P 2 - A patient with mild systemic disease as per Adria Khan MD. 12:34:56 Post procedure rhythm: unchanged. 12:35:01 Estimated blood loss: 10 ml 12:35:03 Post procedure instruction explained to patient.Patient verbalizes understanding. 12:35:04 Patient needs reinforcement of post procedure teaching. 12:35:53 Procedure type changed to Cath procedure, Diagnostic procedure, [facility], C w/Coronaries, FFR/IVUS, FFR Initial, Sedation Charges, Moderate Sedation up to 15 minutes, PCI procedure, Coronary Stent, Coronary Stent Initial 12:35:56 Procedure and supply charges have been captured, reviewed, submitted an d are correct. 12:40:02 Procedure Complication : No complications 12:40:08 Vital chart was stopped 12:40:12 [facility] Findings: MVD- PCI performed (see procedure note) 12:40:17 Operative report dictated upon procedure completion. 12:40:18 See physician's report for complete and final results. 12:40:21 Report given to [facility]. 12:40:27 Patient transfered to [facility] with Bed. 12:40:30 Procedure ended. 12:40:30 Full Disclosure recording stopped 12:40:39 ACC-PCI Only Patient was given prescriptions, or instructed by Adria Khan MD to start/continue the following medications upon discharge: Plavix 12:40:42 End room use (Document Last) Intervention Summary Intervention Notes Time ActionType Lesion and Equipment Used Action# Pressure Duration Attributes 12:26:03 Place stent Mid LAD JUHI RX 3.0 x 1 17 00:00 15 stent ([id number]) Device Usage Item Name Manufacture Quantity Catalog Hospital Part Current Minimal Lot# / Number Charge Number Stock Stock Serial# Code ACIST Syringe Acist 1 83911 028024 662177 512320 20 (89146) Medical Systems Inc Medline Cath Medline 1 [id number] 963490 13526 160711 5 Pack ([id number]) Bag Decanter Microtek 1 2001S 013383 89755 834926 5 (2001S) Medical Inc. ACIST Hand Acist 1 02182 754870 202297 480648 5 Control Medical (87029) Systems Inc ACIST Manifold Acist 1 01004 326918 317806 744892 5 (07564) Medical Systems Inc Tegaderm 4 x 4 3M 1 1626W 604443 444048 569330 5 (1626W) MBrace Wrist Advanced 1 140-0250-00 836229 44405 060977 5 Support Vascular ([id number]) Dynamics EMERALD Guide Cardinal 1 502-455 236796 526066 933655 5 Wire (502455) Health SHEATH 6FR Cardinal 1 3888443 494039 9863251 108261 5 RAIN (7038293) Health DIAGNOSTIC Terumo 1 40-5013 010972 123810 633513 5 Exeter 110cm 5 Fr catheter (062367) DIAGNOSTIC AR2 Cardinal 1 [id number] 373057 365106 447604 20 MOD 5 Fr Health catheter (183273O) GUIDE 6FR AR Medtronic 1 [id number] 423323 82338 821429 1 2.0 catheter (FX1ZR94) GUIDE 6FR Cardinal 1 [id number] 092398 193854 579908 10 XBLAD 3.5 Health catheter (50014909) Carter Carter 1 68713D 007178 [id number] 071265 5 Verrata Plus pressure wire (68757W) INFLATOR Merit Merit 1 OD0216 984035 996429 281201 15 BasixMicrobondspaLinkoTec Medical (VQ5846) JUHI RX 3.0 x Medtronic 1 [id number] 593174 2545470 809300 5 [id number] 15 stent ([id number]) ZEPHYR REGULAR Cardinal 1 360063 134126 8652676 519139 5 TR [employer] (674111) Signature Audit [place] Stage Time Signature Unsigned Intra-Procedure 07/13/2019 Marian 12:41:49 PM Nannemann RT(R) (CV) Intra-Procedure 07/13/2019 Stephie Valenzuela RN 12:42:16 PM Intra-Procedure 07/13/2019 Adria Khan 12:42:45 PM [place] [address] [place] [address]
[~2019-07-09 18:36] MED LIST changes: -LIPITOR40 MG PO; -OMNICEF300 MG PO; -PLAVIX75 MG PO; -XIGDUO XR 5 MG1 EAC1; -ZITHROMAX250 MG PO
[2019-07-09] MEDS ORDERED: XIGDUO XR 5 MG1 EAC1 (19:21)
[2019-07-09 19:27] LABS: HEMATOCRIT 36.5 % (36.0-48.0); HEMOGLOBIN 11.4 g/dL (12-16); MCHC 31.2 g/dL (31.0-37.0); MEAN PLATELET VOLUME 8.8 fL (7.4-10.4); PLATELET COUNT 359 10x3/uL (130-400); RBC 4.56 10x6/uL (4.00-5.40); RDW 18.2 % (11.5-14.5); WBC 17.2 10x3/uL (4.8-10.8)
--- NOTE | 2019-07-09 19:29 | NUR ---
PT REFUSES ABG'S
[2019-07-09 19:40] LABS: APTT 38.6 SECONDS (22.8-39.4); INR 1.11 (0.85-1.17); PROTIME 13.8 SECONDS (11.6-15.0)
[2019-07-09 19:57] LABS: LYMPHOCYTES 14 % (15-50); MONOCYTES 4 % (2-11); NEUTROPHILS 81 % (40-80); PLATELET ESTIMATE NORMAL
[2019-07-09 20:00] LABS: ALBUMIN 2.8 g/dL (3.4-5.0); ALKALINE PHOSPHATASE 135 U/L (46-116); ALT (SGPT) 13 U/L (10-68); BILIRUBIN - TOTAL 0.73 mg/dL (0.2-1.3); CALC OSMOLALITY 278 mosm/kg (275-300); CALCIUM 8.4 mg/dL (8.5-10.1); CARBON DIOXIDE 32.7 mmol/L (21.0-32.0); CHLORIDE - SERUM 92 mmol/L (98-107); CKMB 0.1 U/L (0.0-3.6); CREATINE KINASE 17 UL (21-215); CREATININE - SERUM 1.3 mg/dL (0.6-1.3); GLUCOSE 320 mg/dL (74-106); POTASSIUM - SERUM 2.5 mmol/L (3.5-5.1); PRO BNP 3995 pg/mL (0-125); PROTEIN - SERUM 8.5 g/dL (6.4-8.2); SODIUM 133 mmol/L (136-145); UREA NITROGEN 15 mg/dL (7-18); eGFR NON AFRICAN AMERICAN 47 mL/min (90-120)
[2019-07-09 20:40] VITALS: BP 123/68
[2019-07-09 22:42] VITALS: BP 107/61; BMI 29.5
--- NOTE | 2019-07-09 22:56 | NUR ---
RESCIEVE REPORT FROM MARIO KELLY. PT ARRIVED BY STRETCHER. AAOX4, VSS, NO S/S OF RESP DISTRESS, RR EVEN AND UNLABORED. 84 SINUS RYTHM ON TELE. IV AZITHROMYCIN WITH NS INFUSING ON ARRIVAL TO THE UNIT. PT ON 8L HF O2. PT DENIES DENIES ANY FURTHER NEEDS AT THIS TIME. WILL CPOC. CL WITHIN REACH, BED IN LOW, SR UP X2.
[2019-07-10 01:29] LABS: CKMB 0.1 U/L (0.0-3.6); CREATINE KINASE 17 UL (21-215)
[2019-07-10 01:37] LABS: TROPONIN-I 0.104 ng/mL (0.000-0.060)
[2019-07-10 01:38] LABS: POTASSIUM - SERUM 2.3 mmol/L (3.5-5.1)
[2019-07-10 04:00] VITALS: BP 106/64
[2019-07-10 06:39] LABS: BASOPHILS 0.1 % (0-2); EOSINOPHILS 0.8 % (0-7); HEMATOCRIT 33.4 % (36.0-48.0); HEMOGLOBIN 10.2 g/dL (12-16); IMMATURE GRANULOCYTES 0.5 % (0-5); LYMPHOCYTES 16.6 % (15-50); MCH 24.9 pg (26.0-34.0); MCHC 30.5 g/dL (31.0-37.0); MCV 81.7 fL (80.0-100.0); MEAN PLATELET VOLUME 9.4 fL (7.4-10.4); MONOCYTES 6.9 % (2-11); NEUTROPHILS 75.1 % (40-80); PLATELET COUNT 335 10x3/uL (130-400); RBC 4.09 10x6/uL (4.00-5.40); RDW 18.4 % (11.5-14.5); WBC 17.2 10x3/uL (4.8-10.8)
[2019-07-10 07:03] LABS: CALCIUM 8.1 mg/dL (8.5-10.1); CHLORIDE - SERUM 94 mmol/L (98-107); CKMB 0.1 U/L (0.0-3.6); CREATINE KINASE 9 UL (21-215); MAGNESIUM - SERUM 1.6 mg/dL (1.8-2.4); PHOSPHOROUS 3.4 mg/dL (2.5-4.9); SODIUM 133 mmol/L (136-145); TROPONIN-I 0.031 ng/mL (0.000-0.060); UREA NITROGEN 17 mg/dL (7-18); eGFR NON AFRICAN AMERICAN 63 mL/min (90-120)
--- NOTE | 2019-07-10 07:10 | NUR ---
REPORT RECEIVED FROM ROLLER LEVELER OPERATOR AND PATIENT CARE ASSUMED. PATIENT LAYING IN BED AWAKE, ALERT AND ORIENTED X 4. PATIENT DENIES ANY NEEDS OR PAIN. WILL CONTINUE WITH PLAN OF CARE. SR UP X 2 BED IN LOW POSITION AND CALL LIGHT IN REACH.
[2019-07-10 07:20] LABS: CALC OSMOLALITY 273 mosm/kg (275-300); GLUCOSE 212 mg/dL (74-106)
[2019-07-10 07:21] LABS: POTASSIUM - SERUM 2.7 mmol/L (3.5-5.1)
[2019-07-10 07:29] VITALS: BP 101/49
[2019-07-10 08:16] LABS: APPEARANCE CLOUDY (CLEAR); BILIRUBIN NEGATIVE (NEGATIVE); COLOR YELLOW (YELLOW); GLUCOSE NEGATIVE (NEGATIVE); KETONE NEGATIVE (NEGATIVE); NITRITE NEGATIVE (NEGATIVE); PROTEIN 1+ mg/dL (NEGATIVE); SPECIFIC GRAVITY 1.015 (1.005-1.020); UROBILINOGEN NORMAL (NORMAL)
[2019-07-10 08:20] LABS: RED CELLS - URINE 0-5 /hpf (0-5); WHITE CELLS - URINE >50 /hpf (NEGATIVE)
[2019-07-10 08:21] LABS: BACTERIA MODERATE /hpf (NEGATIVE)
[2019-07-10 11:34] VITALS: BP 128/68
[2019-07-10 12:43] LABS: CKMB 0.2 U/L (0.0-3.6); CREATINE KINASE 11 UL (21-215); TROPONIN-I < 0.017 ng/mL (0.000-0.060)
--- NOTE | 2019-07-10 12:52 | NUR ---
PATIENT IS STABLE AND VSS. PATIENT DENIES ANY NEEDS OR PAIN. WILL CONTINUE TO MONITOR. SR UP X 2 BED IN LOW POSITION AND CALL LIGHT IN REACH.
[2019-07-10 15:16] VITALS: BP 113/59
[2019-07-10 20:00] VITALS: BP 112/56
--- NOTE | 2019-07-10 22:35 | NUR ---
INITIAL ROUNDS COMPLETED AT 1910 HRS. PT DENIES ANY DISCOMFORT. ASSESSMENT COMPLETED AT 1945 HRS. VSS. ALERT AND ORIENTED TO PERSON, PLACE AND TIME. AMBROSIO. IV TO R HAND WIT NS AT 75CC/HR. IV PATENT. LUNGS DIMINISHED IN BASES IN BASES BILAT. PM FSBS 291. 10 UNITS HUMALOG GIVEN SUB-Q TO UPPER R ARM. PM MEDS GIVEN INCLUDING MORPHINE 2MG SIVP FOR C/O R SHOULDER PAIN. PT CURRENTLY RESTING WITH EYES CLOSED. RESP EVEN AND REGULAR. SR UP X2, CALL LIGHT WITHIN REACH.
--- NOTE | 2019-07-10 23:37 | NUR ---
3RD DOSE KCL 20MEQ PO GIVEN. WILL Recheck k+ IN AM. CALL LIGHT WITHIN REACH.
[2019-07-11] VITALS (7 sets, daily range): BP systolic 105–145; BP diastolic 58–78
--- NOTE | 2019-07-11 02:14 | NUR ---
PT RESTING WITH EYES CLOSED. RESP EVEN AND REGULAR. SR UP X1, CALL LIGHT WITHIN REACH.
--- NOTE | 2019-07-11 04:30 | NUR ---
PT RESTING WITH EYES CLOSED. RESP EVEN AND REGULAR. SR UP X2, CALL LIGHT WITHIN REACH.
--- NOTE | 2019-07-11 05:46 | NUR ---
PT RESTING WITH EYES CLOSED. RESP EVEN AND REGULAR. CALL LIGHT WITHIN REACH.
[2019-07-11 06:00] LABS: CALCIUM 7.3 mg/dL (8.5-10.1); CARBON DIOXIDE 27.3 mmol/L (21.0-32.0); CHLORIDE - SERUM 102 mmol/L (98-107); MAGNESIUM - SERUM 1.7 mg/dL (1.8-2.4); SODIUM 138 mmol/L (136-145); UREA NITROGEN 13 mg/dL (7-18)
[2019-07-11 06:07] LABS: CALC OSMOLALITY 285 mosm/kg (275-300); CREATININE - SERUM 0.7 mg/dL (0.6-1.3); GLUCOSE 279 mg/dL (74-106); PHOSPHOROUS 2.4 mg/dL (2.5-4.9); POTASSIUM - SERUM 3.2 mmol/L (3.5-5.1); eGFR NON AFRICAN AMERICAN > 90 mL/min (90-120)
[2019-07-11 06:12] LABS: BASOPHILS 0.2 % (0-2); EOSINOPHILS 1.4 % (0-7); HEMATOCRIT 29.3 % (36.0-48.0); HEMOGLOBIN 8.8 g/dL (12-16); IMMATURE GRANULOCYTES 0.6 % (0-5); LYMPHOCYTES 16.8 % (15-50); MCH 24.9 pg (26.0-34.0); MEAN PLATELET VOLUME 9.2 fL (7.4-10.4); MONOCYTES 7.4 % (2-11); NEUTROPHILS 73.6 % (40-80); PLATELET COUNT 298 10x3/uL (130-400); RBC 3.53 10x6/uL (4.00-5.40); RDW 18.8 % (11.5-14.5)
[2019-07-11 06:16] LABS: WBC 10.8 10x3/uL (4.8-10.8)
--- NOTE | 2019-07-11 07:00 | NUR ---
RECEIVED REPORT. ASSUMED CARE OF PATIENT. CALL LIGHT WITHIN REACH. PATIENT SITTING TO SIDE OF BED. PATIENT DENIES NEEDS AT THIS TIME. RESP EVEN AND UNLABORED. ASKED PATIENT IF TEMPERATURE OF ROOM IS DESIRABLE AND SHE STATES SHE LIKES IT COLD. NO DISTRESS.
--- NOTE | 2019-07-11 09:44 | NUR ---
MEDICATED FOR PAIN AT THIS TIME. NO DISTRESS.
--- NOTE | 2019-07-11 11:49 | NUR ---
FSBS 264. 10 UNITS HUMALOG ADMINISTERED PER SLIDING SCALE.
--- NOTE | 2019-07-11 13:51 | NUR ---
EP FOR K+ OF 3.4 INITIATED. WILL REDRAW K+ @ 1800.
--- NOTE | 2019-07-11 13:52 | NUR ---
OCCUPATIONAL THERAPY DEPARTMENT CHAIR AT BEDSIDE, ECHO COMPLETE AT THIS TIME.
--- NOTE | 2019-07-11 17:03 | NUR ---
FSBS 237. 8 UNITS OF HUMALOG ADMINISTERED PER SLIDING SCALE AT THIS TIME. NO DISTRESS.
--- NOTE | 2019-07-11 19:25 | NUR ---
INITIAL ROUNDS COMPLETED. FAMILY AT BEDSIDE. NO DISTRESS NOTED. CALL LIGHT WITHIN REACH.
--- NOTE | 2019-07-11 22:18 | NUR ---
ASSESSMENT COMPLETED AT 1930 HRS. VSS. SR PER CM HR 80. ALERT AND ORIENTED TO PERSON,PLACE AND TIME. AMBROSIO. IV TO R HAND SL. LUNGS DIMINISHED IN BASES BILAT. ABD SOFT WITH ACTIVE BS NOTED. PM FSBS 261. 10 UNITS HUMALOG GIVEN SUB-Q TO UPPER R ARM. PM MEDS GIVEN.MORPHNE 2MG SIVP GIVEN FOR C/O SHOULDER AND UPPER R THIGH PAIN. R THIGH ASSESSED. NO SWELLING NOTED, REDNESS OR INCREASED WARMTH NOTED. PT CURRENTLY RESTING WITH EYES CLOSED. RESP EVEN AND REGULAR. SR UP X2, CALL LIGHT WITHIN REACH.
--- NOTE | 2019-07-11 23:47 | NUR ---
IV TO R AHND TENDER AND SWOLLEN. DC'D WITH CATHETER INTACT. NEW IV STARTED #22 TO L WRIST WITH ATTEMPT X1. PT TOLERATED ACTIVITY WELL. PT DECLINES IV FLUID AT THIS TIME. SPOUSE AT BEDSIDE.
--- NOTE | 2019-07-12 01:44 | NUR ---
PT RESTING WITH EYES CLOSED. RESP EVEN AND REGULAR. SR UP X2, CALL LIGHT WITHIN REACH.
--- NOTE | 2019-07-12 03:10 | NUR ---
PT RESTING WITH EYES CLOSED. RESP EVEN AND REGULAR. SR UP X2, CALL LIGHT WITHIN REACH.
[2019-07-12 04:00] VITALS: BP 122/31
[2019-07-12 05:06] LABS: BASOPHILS 0.2 % (0-2); EOSINOPHILS 2.8 % (0-7); HEMATOCRIT 29.5 % (36.0-48.0); HEMOGLOBIN 8.8 g/dL (12-16); IMMATURE GRANULOCYTES 0.8 % (0-5); LYMPHOCYTES 24.1 % (15-50); MCH 25.1 pg (26.0-34.0); MCHC 29.8 g/dL (31.0-37.0); MCV 84.3 fL (80.0-100.0); MEAN PLATELET VOLUME 9.1 fL (7.4-10.4); MONOCYTES 8.7 % (2-11); NEUTROPHILS 63.4 % (40-80); PLATELET COUNT 303 10x3/uL (130-400); WBC 10.1 10x3/uL (4.8-10.8)
[2019-07-12 05:29] LABS: CALCIUM 7.5 mg/dL (8.5-10.1); CARBON DIOXIDE 28.8 mmol/L (21.0-32.0); CHLORIDE - SERUM 102 mmol/L (98-107); CREATININE - SERUM 0.6 mg/dL (0.6-1.3); MAGNESIUM - SERUM 1.7 mg/dL (1.8-2.4); PHOSPHOROUS 2.3 mg/dL (2.5-4.9); POTASSIUM - SERUM 3.8 mmol/L (3.5-5.1); SODIUM 138 mmol/L (136-145); eGFR NON AFRICAN AMERICAN > 90 mL/min (90-120)
[2019-07-12 05:32] LABS: CALC OSMOLALITY 280 mosm/kg (275-300); GLUCOSE 218 mg/dL (74-106); UREA NITROGEN 6 mg/dL (7-18)
--- NOTE | 2019-07-12 07:00 | NUR ---
RECEIVED REPORT. ASSUMED CARE OF PATIENT. RESTING IN BED WITH EYES CLOSED. NO DISTRESS. CALL LIGHT WITHIN REACH.
[2019-07-12 08:45] VITALS: BP 124/70
--- NOTE | 2019-07-12 12:29 | NUR ---
LYING IN BED WITH EYES CLOSED. NOON MEAL CONSUMED. CALL LIGHT WITHIN REACH. PATIENT DOES NOT WANT IV FLUIDS. PATIENT STATES SHE IS EATING AND DRINKING WELL. PATIENT VERBALIZED UNDERSTANDING OF HEART CATH IN AM. NO DISTRESS. DENIES NEEDS.
[2019-07-12 13:09] VITALS: BP 131/69
--- NOTE | 2019-07-12 16:42 | NUR ---
FSBS 189. 4 UNITS HUMALOG ADMINISTERED PER SLIDING SCALE.
[2019-07-12 17:57] VITALS: BP 144/74
--- NOTE | 2019-07-12 18:48 | NUR ---
CONSENTS SIGNED AND PLACED ON CHART FOR HEART CATH IN AM WITH .
--- NOTE | 2019-07-12 19:15 | NUR ---
RECEIVED REPORT, WILL ASSUME CARE OF PT, VISITING WITH FAMILY MEMBER, DENIES ANY NEEDS, BED IS LOW, SRX2, CALL LIGHT IN REACH, WILL CONTINUE PLAN OF CARE
[2019-07-12 20:00] VITALS: BP 143/60
[2019-07-13 00:23] VITALS: BP 143/68
--- NOTE | 2019-07-13 02:53 | NUR ---
I have reviewed this patient and I concur with the Shift Assessment completed by the Licensed Practical Nurse today this shift.
[2019-07-13 04:00] VITALS: BP 128/63
[2019-07-13 06:33] LABS: BASOPHILS 0.2 % (0-2); EOSINOPHILS 2.2 % (0-7); HEMATOCRIT 32.1 % (36.0-48.0); HEMOGLOBIN 9.5 g/dL (12-16); IMMATURE GRANULOCYTES 0.8 % (0-5); LYMPHOCYTES 25.8 % (15-50); MCH 24.6 pg (26.0-34.0); MCHC 29.6 g/dL (31.0-37.0); MCV 83.2 fL (80.0-100.0); MEAN PLATELET VOLUME 9.3 fL (7.4-10.4); RBC 3.86 10x6/uL (4.00-5.40); RDW 18.8 % (11.5-14.5); WBC 9.7 10x3/uL (4.8-10.8)
[2019-07-13 06:45] LABS: PLATELET COUNT 380 10x3/uL (130-400)
[2019-07-13 06:52] LABS: CALC OSMOLALITY 276 mosm/kg (275-300); CALCIUM 8.7 mg/dL (8.5-10.1); CARBON DIOXIDE 29.1 mmol/L (21.0-32.0); CHLORIDE - SERUM 100 mmol/L (98-107); CREATININE - SERUM 0.5 mg/dL (0.6-1.3); MAGNESIUM - SERUM 1.4 mg/dL (1.8-2.4); POTASSIUM - SERUM 3.7 mmol/L (3.5-5.1); SODIUM 138 mmol/L (136-145); UREA NITROGEN 5 mg/dL (7-18); eGFR NON AFRICAN AMERICAN > 90 mL/min (90-120)
[2019-07-13 06:54] LABS: GLUCOSE 169 mg/dL (74-106); PHOSPHOROUS 3.1 mg/dL (2.5-4.9)
[2019-07-13 10:35] VITALS: BP 138/73
[2019-07-13 12:47] VITALS: BP 104/71
--- NOTE | 2019-07-13 13:05 | NUR ---
PT BACK TO ROOM FROM CORE FILER. ZITHROBAN IN PLACE. 129/65, 67 HR, 93% 2 LITERS. NO PAIN COMPLAINTS. EATING LUNCH, FAMILY IN ROOM.
[2019-07-13 16:40] VITALS: BP 88/55
--- NOTE | 2019-07-13 16:56 | NUR ---
ALERT AND ORIENTED X4. SITTING UP IN BED. FAMILY AT BEDSIDE. REASSESS BP-88/55. ACTUAL BP-137/69. BEGIN DEFLATING ZITHROBAND 2 mL AT A TIME. SINUS RYTHM ON TELEMETRY. DENIES ANY NEEDS. CONTINUE PLAN OF CARE AND SAFETY PRECAUTIONS.
[2019-07-13 20:41] VITALS: BP 131/66
[2019-07-14 00:58] VITALS: BP 110/59
--- NOTE | 2019-07-14 01:12 | NUR ---
I have reviewed this patient and I concur with the Shift Assessment completed by the Licensed Practical Nurse today this shift.
--- NOTE | 2019-07-14 02:13 | NUR ---
RESTING WITH EYES CLOSED, RESPERATIONS EVEN, NO S/S DISTRESS NOTED.
[2019-07-14 04:49] VITALS: BP 124/60
[2019-07-14 07:01] LABS: BASOPHILS 0.3 % (0-2); EOSINOPHILS 2.7 % (0-7); HEMOGLOBIN 8.3 g/dL (12-16); LYMPHOCYTES 28.9 % (15-50); MCH 24.7 pg (26.0-34.0); MCHC 29.6 g/dL (31.0-37.0); MCV 83.3 fL (80.0-100.0); MEAN PLATELET VOLUME 9.2 fL (7.4-10.4); MONOCYTES 7.4 % (2-11); NEUTROPHILS 59.7 % (40-80); PLATELET COUNT 311 10x3/uL (130-400); RBC 3.36 10x6/uL (4.00-5.40); RDW 18.8 % (11.5-14.5); WBC 7.7 10x3/uL (4.8-10.8)
[2019-07-14 07:14] LABS: CALC OSMOLALITY 275 mosm/kg (275-300); CALCIUM 8.1 mg/dL (8.5-10.1); CARBON DIOXIDE 28.6 mmol/L (21.0-32.0); CHLORIDE - SERUM 102 mmol/L (98-107); CREATININE - SERUM 0.5 mg/dL (0.6-1.3); GLUCOSE 133 mg/dL (74-106); POTASSIUM - SERUM 3.3 mmol/L (3.5-5.1); SODIUM 138 mmol/L (136-145); eGFR NON AFRICAN AMERICAN > 90 mL/min (90-120)
[2019-07-14 07:15] LABS: UREA NITROGEN 8 mg/dL (7-18)
--- NOTE | 2019-07-14 07:25 | NUR ---
ASSESSMENT DONE. DENIES NEEDS
[2019-07-14 09:14] VITALS: BP 141/57
--- NOTE | 2019-07-14 10:07 | NUR ---
I have reviewed this patient and I concur with the Shift Assessment completed by the Licensed Practical Nurse today this shift.
[2019-07-14 15:09] VITALS: Ht 170.2 cm; Wt 85.4 kg
[2019-07-14 15:22] VITALS: BP 102/52
[2019-07-14 15:27] VITALS: BP 126/41
--- NOTE | 2019-07-14 16:52 | MORECARE ---
CASE MANAGEMENT DISCHARGE SUMMARY PATIENT: KENYON WATSON UNIT: [id number] ADM DATE: 07/09/19 AGE: 44 : 71 SEX: F ROOM/BED: D.2393 AUTHOR: CARLTON GOODEN PHYSICIAN: REFERRING PHYSICIAN: RICARDO MACK MD DATE OF SERVICE: 07/14/19 Discharge Plan Patient Name: KENYON WATSON [facility] [facility] 1975 Planned Disposition: Home Anticipated Discharge Date: Discharge Date: Expected LOS: Initial Reviewer: [email or web address] Initial Review Date: 07/14/2019 Generated: 07/14/19 5:51 pm Comments DCP- Discharge Planning Updated by [email or web address]: Leann Andersen on 07/14/19 3:[address] Patient Name: KENYON WATSON Admission Status: ER Accout number: [id number] Admission Date: 07-09-2019 : 1975 Admission Diagnosis: Attending: FREDERICK, Current LOS: 5 Anticipated DC Date: Planned Disposition: Home Primary Insurance: [employer] OUT OF STATE Discharge Planning Comments: CM MET WITH PATIENT ABOUT DC PLANNING/NEEDS. STATES PLANS TO DC TO HOME WITH HOPEFULLY TODAY. IF NEED FOR 02 THEN [facility] SIGNED FOR ANY AVAILABLE. CM WILL FOLLOW. Family Service Assistant: Leann Andersen DCPIA - Discharge Planning Initial Assessment Updated by [email or web address]: Leann Andersen on 07/14/19 4:48 pm * Is the patient Alert and Oriented? Yes * PCP TRE * [facility] * Preadmission Environment Home with Family * ADLs Independent * Other Equipment NEBS * Additional services required to return to the preadmission environment? No * Can the patient safely return to the preadmission environment? Yes * Has this patient been hospitalized within the prior 30 days at any hospital? No Patient Name: KENYON WATSON Page 81443 at 1652 All edits/amendments must be made on the electronic document DICTATION DATE: 07/14/191650 LITHOGRAPHER HELPER: MANI 07/14/191650 RPT#: [id number] DC DATE: STATUS: ADM IN [facility] [address] [place] [address] END OF REPORT
[2019-07-14] MEDS ORDERED: PLAVIX75 MG PO (17:46)
[2019-07-14] MEDS ORDERED: ZITHROMAX250 MG PO (17:47)
[2019-07-14] MEDS ORDERED: OMNICEF300 MG PO (17:48)
[2019-07-14] MEDS ORDERED: LIPITOR40 MG PO (18:07)
--- NOTE | 2019-07-15 09:06 | MORECARE ---
CASE MANAGEMENT DISCHARGE SUMMARY PATIENT: KENYON WATSON UNIT: [id number] ADM DATE: 07/09/19 AGE: 44 : 71 SEX: F ROOM/BED: D.4888 AUTHOR: BERKLEY,DOC PHYSICIAN: REFERRING PHYSICIAN: RICARDO MACK MD DATE OF SERVICE: 07/15/19 Discharge Plan Patient Name: KENYON WATSON Facility: [facility]:[place] : 1975 Planned Disposition: Home Anticipated Discharge Date: 07/14/19 Discharge Date: 07/14/2019 Expected LOS: 5 Initial Reviewer: [email or web address] Initial Review Date: 07/14/2019 Generated: 07/15/19 10:06 am Comments DCP- Discharge Planning Updated by [email or web address]: Leann Andersen on 07/14/19 3:[address] Patient Name: KENYON WATSON Admission Status: ER Accout number: [id number] Admission Date: 07-09-2019 : 1975 Admission Diagnosis: Attending: FREDERICK, Current LOS: 5 Anticipated DC Date: Planned Disposition: Home Primary Insurance: [id number] OUT OF STATE Discharge Planning Comments: CM MET WITH PATIENT ABOUT DC PLANNING/NEEDS. STATES PLANS TO DC TO HOME WITH HOPEFULLY TODAY. IF NEED FOR 02 THEN [facility] SIGNED FOR ANY AVAILABLE. CM WILL FOLLOW. Button Maker: Leann Andersen DCPIA - Discharge Planning Initial Assessment Updated by [email or web address]: Leann Andersen on 07/14/19 4:48 pm * Is the patient Alert and Oriented? Yes * PCP TRE * [facility] * Preadmission Environment Home with Family * ADLs Independent * Other Equipment NEBS * Additional services required to return to the preadmission environment? No * Can the patient safely return to the preadmission environment? Yes * Has this patient been hospitalized within the prior 30 days at any hospital? No Coverage Notice Reviewer: [email or web address] - Leann Andersen Notice Issued Date-Time: 07/14/2019 16:52 Notice Type: Patient Choice Letter Notice Delivered To: Patient Relationship to Patient: Geodetic Advisor Name: Delivery Method: HAND - Hand Delivered Arin Days: Prior Verbal Notification: Recipient Understood Notice: Yes Recipient Signature: Yes Med Rec Note Co-signed by Attending: Coverage Notice Comment: [facility] DME ANY AVAILABLE Last DP export: 07/14/19 3:52 p Patient Name: KENYON WATSON Page 98092 at 0906 All edits/amendments must be made on the electronic document DICTATION DATE: 07/15/19905 PUBLICATIONS SALES REPRESENTATIVE: MANI 07/15/19905 RPT#: [id number] DC DATE:07/14/19 STATUS: DIS IN [facility] [address] [place] [address] END OF REPORT
--- NOTE | 2019-07-15 14:07 | EC ---
PATIENT:KENYON WATSON DATE OF SERVICE: 07/09/19 SEX: F MEDICAL RECORD: [id number] DATE OF : [birth year] LOCATION:D. D.212 AGE OF PATIENT: 44 ADMISSION DATE: 07/09/19 REFERRING PHYSICIAN: INTERPRETING PHYSICIAN: BALDEMAR KHAN MD ECHOCARDIOGRAM REPORT ECHO CHARGES 4 ECHO COMPLETE Date: 07/11/19 CLINICAL DIAGNOSIS: DYSPNEA/WY ECHOCARDIOGRAPHIC MEASUREMENTS (adult normal given) AC root (d.<3.7cm) 3.4 cm LV Septum d (<1.2 cm> 1.3 cm Valve Excursion 2.0 cm LV Septum (systole) 1.6 cm Left Atria (s.<4.0cm> 3.7 cm LVPW d(<1.2cm) 1.5 cm RV (d.<2.3cm) 3.4 cm LVPW (sytole) 1.9 cm LV diastole(<5.6CM) 3.7 cm MV E-F(>70mm/sec) cm LV systole 2.5 cm LVOT Diameter 1.9 cm MV exc.(>10mm) 1.4 cm Est.ejection fraction (50-75%) % DOPPLER: LVIT cm/sec A 91.0 cm/sec E 118 cm/sec LA cm/sec RVSP 29 mmHg LVOT 127 cm/sec AOP1/2T m/s Asc. Ao 158 cm/sec RVOT 87 cm/sec RA cm/sec PA 133 cm/sec AV Gradient Peak 9.95 mmHg AV Mean 5.49 mmHg AV Area 2.3 cm MV Gradient Peak 6.19 mmHg MV Mean 2.87 mmHg MV Area cm COMMENTS: Senior Sharepoint Developer: Yas SALVADOR Loom Technician: 1 Dr. Khan TAPE# PACS Pericardial Effusion N DATE OF SERVICE: 07/11/2019 ECHOCARDIOGRAM FINDINGS: 1. Left ventricular chamber size is within normal limits. Left ventricular systolic function is normal. Ejection fraction 60% to 65%. 2. Left atrium, right atrium, and right ventricle chamber sizes are within normal limits. 3. Valvular structures have normal structure and motion. ECHOCARDIOGRAM REPORT [id number] KENYON WATSON 4. Doppler interrogation reveals no significant valvular insufficiency or stenosis. Pulmonary systolic pressure is normal estimated at 29 mmHg. 5. No evidence of pericardial effusion or left ventricular thrombus. TRANSINT:[id number] Voice Confirmation ID: [id number] DOCUMENT ID: [id number] BALDEMAR KHAN MD at 1407 CC: [id number] DICTATION DATE: 07/11/191747 RECEIVING BARN CUSTODIAN: 07/11/192108 DIS IN 07/14/19 [place] [id number] [place] [id number]
--- NOTE | 2019-07-15 14:07 | CN ---
PATIENT NAME:KENYON MARTINEZ MEDICAL RECORD: [id number] : [birth year] LOCATION:D. D.2125 ADMIT DATE: 07/09/19 ACCOUNT: [id number] CONSULTING PHYSICIAN: BALDEMAR PEREZ MD REFERRING PHYSICIAN: RICARDO MACK MD DATE OF CONSULTATION: 07/11/2019 CARDIOLOGY CONSULTATION DIAGNOSES: 1. Non-Q-wave myocardial infarction. 2. Coronary artery disease. 3. Family history of coronary artery disease. 4. Smoking. 5. Hyperlipidemia. 6. Noninsulin-dependent diabetes. 7. Chronic obstructive pulmonary disease. 8. Pneumonia. HISTORY OF PRESENT ILLNESS: Mrs. Martinez presents with shortness of breath, cough, sputum production as well as chest pain. She attributed the chest pain initially to the coughing. The chest pain; however, on her description sounds more like angina with a dull aching heavy sensation, sometimes associated with coughing, other times just there, associated with shortness of breath. She has ruled in for a non-Q-wave myocardial infarction. She has no history of ischemic heart disease. No history of cardiac workup in the past. FAMILY HISTORY: Smoking, noninsulin dependent diabetes and hyperlipidemia, her risk factors. PHYSICAL EXAMINATION: CONSTITUTIONAL/GENERAL APPEARANCE: Well nourished, well developed, appears stated age. EYES: Lids and conjunctivae noninjected. No discharge. No pallor. ENT: Lips within normal limit. No cyanosis. No pallor. NECK: Carotid arteries, bilateral normal upstroke. No bruits. No thrills. No jugular venous pressure or distention. CERVICAL LYMPH NODES: Nontender. Nonenlarged. THYROID: Not enlarged. No nodules. CARDIOVASCULAR: Precordial exam, nondisplaced. No heaves or pericardial thrills. Rate and rhythm, regular. Heart sounds, normal S1, normal S2. No S3, no gallop, no rub. Systolic murmur, not heard. Diastolic murmur, not heard. RESPIRATORY: Respiratory effort, unlabored. Normal curvature. No thoracic deformity. No chest wall tenderness. Percussion, resonant. Auscultation, clear. No wheezes, no rales, no rhonchi. ABDOMEN: Soft, nondistended, nontender. No abdominal pain, no vomiting and normal appetite. MUSCULOSKELETAL: No joint tenderness, normal gait, normal tone. SKIN: Warm and dry. OVERALL IMPRESSION: Non-Q-wave myocardial infarction. At this time, we will start her on low dose blockade, statin, aspirin, and Plavix. Plan for echocardiogram today. Cardiac catheterization in the near future. TRANSINT:[id number] Voice Confirmation ID: [id number] DOCUMENT ID: [id number] CONSULT REPORT [id number] KENYON MARTINEZ JEFFREY MD at 1407 CC: [id number] DICTATION DATE: 07/11/19 1221 CAPTAIN/CHECK AIRMAN: 07/11/19 1233 DIS IN 07/14/19 [place] [id number] [place] [address]
--- NOTE | 2019-07-15 14:08 | OP ---
PATIENT NAME: KENYON WATSON MEDICAL RECORD: [id number] :71 LOCATION:D.M2 D.2125 ADMISSION DATE:07/09/19 SURGEON: BALDEMAR PEREZ MD DATE OF OPERATION: 07/13/2019 PROCEDURES: 1. PTCA stent LAD. 2. IFR LAD. 3. IFR RCA. 4. Left heart catheterization. 5. Selective coronary angiography. 6. Left ventriculogram. INDICATION: Non-Q-wave myocardial infarction. DESCRIPTION OF PROCEDURE: After informed consent was obtained and after a detailed description of risks, benefits as well as alternative therapies, the patient elected to proceed with angiogram and angioplasty. The right radial area was prepped and draped in normal sterile fashion. Right radial artery was cannulated via modified Seldinger technique with placement of 6-Albanian sheath. All catheters exchanged through this sheath. FINDINGS: Left ventriculogram was performed in standard 30-degree WISE view, reveals good cardiac wall motion throughout all segments. Overall ejection fraction estimated 60%. SELECTIVE CORONARY ANGIOGRAPHY: 1. Left main showed no significant angiographic disease. 2. Left anterior descending has 70% to 80% stenosis proximally and IFR was abnormal at 0.8. 3. Right coronary artery has 50% to 70% stenosis proximally; however, IFR was normal at 0.96. 4. Left circumflex has mild irregularities, but no flow-limiting stenosis. PTCA STENT OF THE LAD: The stent used was a 3.0 x 15 mm Cheikh. Result was 0% residual stenosis. OVERALL IMPRESSION: Successful percutaneous transluminal coronary angioplasty stent of the left anterior descending going from 70% to 80% initial stenosis to 0% residual. TRANSINT:[id number] Voice Confirmation ID: [id number] DOCUMENT ID: [id number] BALDEMAR PEREZ MD at 1408 CC: [id number] DICTATION DATE: 07/13/19 1238 CAR RUNNER: 07/13/19 1259 DIS IN 07/14/19 [place] [id number]
--- NOTE | 2019-07-27 09:29 | OP ---
PATIENT NAME: KENYON WATSON MEDICAL RECORD: [id number] :71 LOCATION:Irena Leos2125 ADMISSION DATE:07/09/19 SURGEON: BALDEMAR PEREZ MD DATE OF OPERATION: 07/13/2019 ADDENDUM The patient was placed on aspirin in addition to Plavix. Aspirin dose was 81 mg every day. TRANSINT:[id number] Voice Confirmation ID: [id number] DOCUMENT ID: [id number] BALDEMAR PEREZ MD at 0929 CC: [id number] DICTATION DATE: 07/26/19 1125 CERTIFIED BENCH JEWELER TECHNICIAN: 07/26/19 1209 DIS IN 07/14/19 [place] [id number] [place] [address]
== END 2019-07-14 19:46 | disposition home or self-care (01) | DRG 246 ==
LOC: D.ER 18:36 → D.M2 20:49
PROVIDERS: Family Medicine; Internal Medicine Interventional Cardiology; ADMIT Family Medicine; ATTEND Family Medicine
PROC: 4A023N7 Measurement of Cardiac Sampling and Pressure, Left Heart, Percutaneous Approach (ICD-10-PCS; 2019-07-13)
PROC: B2111ZZ Fluoroscopy of Multiple Coronary Arteries using Low Osmolar Contrast (ICD-10-PCS; 2019-07-13)
PROC: B2151ZZ Fluoroscopy of Left Heart using Low Osmolar Contrast (ICD-10-PCS; 2019-07-13)
PROC: 027034Z Dilation of Coronary Artery, One Artery with Drug-eluting Intraluminal Device, Percutaneous Approach (ICD-10-PCS; principal; 2019-07-13 11:36)
PROC: 4A033BC Measurement of Arterial Pressure, Coronary, Percutaneous Approach (ICD-10-PCS; 2019-07-13 11:36)
DX: I21.4 Non-ST elevation (NSTEMI) myocardial infarction (principal); J18.9 Pneumonia, unspecified organism; J96.01 Acute respiratory failure with hypoxia; E87.1 Hypo-osmolality and hyponatremia; F17.213 Nicotine dependence, cigarettes, with withdrawal; N17.9 Acute kidney failure, unspecified; E87.6 Hypokalemia; M54.9 Dorsalgia, unspecified; G89.29 Other chronic pain; M50.30 Other cervical disc degeneration, unspecified cervical region; E11.9 Type 2 diabetes mellitus without complications

== ENCOUNTER 2020-03-09 14:25 | Emergency (ER) | payer BC, MEDICARE ==
[~2020-03-09] VITALS: Ht 170.2 cm; Wt 86.4 kg
[~2020-03-09 14:25] MED LIST changes: +LIPITOR40 MG PO; +OMNICEF300 MG PO; +PLAVIX75 MG PO; +XIGDUO XR 5 MG1 EAC1; +ZITHROMAX250 MG PO
[2020-03-09 14:32] VITALS: Ht 170.2 cm; Wt 86.4 kg
[2020-03-09] MEDS ORDERED: VIBRAMYCIN 100100 MG PO (15:28)
[2020-03-09] MEDS ORDERED: TYLENOL W/CODEI1 TAB PO (15:28)
[2020-03-09 15:41] LABS: BILIRUBIN NEGATIVE (NEGATIVE); GLUCOSE 1000 mg/dL (NEGATIVE); KETONE NEGATIVE (NEGATIVE); NITRITE NEGATIVE (NEGATIVE); SPECIFIC GRAVITY 1.015 (1.005-1.020); UROBILINOGEN NORMAL (NORMAL)
[2020-03-09 15:47] LABS: RED CELLS - URINE 0-5 /hpf (0-5); WHITE CELLS - URINE 0-5 /hpf (NEGATIVE)
[2020-03-09 15:48] LABS: BACTERIA MODERATE /hpf (NEGATIVE); YEAST <1+ /hpf (NONE SEEN)
[2020-03-09 16:03] VITALS: BP 146/84
== END 2020-03-09 16:02 | disposition home or self-care (01) ==
LOC: D.ER 14:25
PROVIDERS: Family Medicine
DX: M54.5 Low back pain (principal); L03.317 Cellulitis of buttock; N76.2 Acute vulvitis; E11.9 Type 2 diabetes mellitus without complications; K21.9 Gastro-esophageal reflux disease without esophagitis; Z79.84 Long term (current) use of oral hypoglycemic drugs

== ENCOUNTER → 2020-04-13 10:32 | Outpatient (CLI) | payer BC, MEDICARE ==
[2020-03-09 14:32] VITALS: BMI 29.8
[~2020-04-13 10:32] MED LIST changes: +TYLENOL W/CODEI1 TAB PO; +VIBRAMYCIN 100100 MG PO
[2020-04-13 11:36] LABS: ALBUMIN 2.9 g/dL (3.4-5.0); BILIRUBIN - DIRECT 0.09 mg/dL (0.00-0.30); BILIRUBIN - INDIRECT 0.2 mg/dL (0.00-1.00); BILIRUBIN - TOTAL 0.29 mg/dL (0.2-1.3); PROTEIN - SERUM 7.4 g/dL (6.4-8.2)
== END | disposition home or self-care (01) ==
LOC: D.US 10:30
PROVIDERS: ATTEND Internal Medicine Gastroenterology
DX: K76.0 Fatty (change of) liver, not elsewhere classified (principal)

== ENCOUNTER → 2020-06-10 08:08 | Outpatient (CLI) | payer BC, MEDICARE ==
[2020-03-09 14:32] VITALS: BMI 29.8
== END | disposition home or self-care (01) ==
LOC: D.NM 06-07 08:30
PROVIDERS: ATTEND Internal Medicine Gastroenterology
DX: R93.3 Abnormal findings on diagnostic imaging of other parts of digestive tract (principal)

== ENCOUNTER 2020-06-15 15:39 | Emergency (ER) | payer BC, MEDICARE ==
[~2020-06-15] VITALS: Ht 170.2 cm; Wt 88.2 kg
[2020-06-15 15:47] VITALS: Ht 170.2 cm; Wt 88.2 kg
[2020-06-15 16:50] LABS: BASOPHILS 0.5 % (0-2); EOSINOPHILS 2.5 % (0-7); HEMATOCRIT 44.2 % (36.0-48.0); HEMOGLOBIN 14.2 g/dL (12-16); IMMATURE GRANULOCYTES 0.2 % (0-5); LYMPHOCYTES 32.7 % (15-50); MCH 27.7 pg (26.0-34.0); MCHC 32.1 g/dL (31.0-37.0); MCV 86.2 fL (80.0-100.0); MEAN PLATELET VOLUME 9.1 fL (7.4-10.4); MONOCYTES 5.2 % (2-11); NEUTROPHILS 58.9 % (40-80); PLATELET COUNT 234 10x3/uL (130-400); RBC 5.13 10x6/uL (4.00-5.40); WBC 5.9 10x3/uL (4.8-10.8)
[2020-06-15 17:06] LABS: APTT 33.9 SECONDS (22.8-39.4)
[2020-06-15 17:07] LABS: INR 0.88 (0.85-1.17); PROTIME 11.9 SECONDS (11.6-15.0)
[2020-06-15 17:29] LABS: ALKALINE PHOSPHATASE 94 U/L (30-120); ALT (SGPT) 12 U/L (10-68); BILIRUBIN - TOTAL 0.35 mg/dL (0.2-1.3); CALC OSMOLALITY 272 mosm/kg (275-300); CALCIUM 8.9 mg/dL (8.5-10.1); CARBON DIOXIDE 31.5 mmol/L (21.0-32.0); CHLORIDE - SERUM 97 mmol/L (98-107); CKMB 0.8 U/L (0.0-3.6); CREATINE KINASE 18 UL (21-215); CREATININE - SERUM 0.7 mg/dL (0.6-1.3); GLUCOSE 223 mg/dL (74-106); PRO BNP 273 pg/mL (0-125); PROTEIN - SERUM 7.5 g/dL (6.4-8.2); SODIUM 134 mmol/L (136-145); TROPONIN-I < 0.017 ng/mL (0.000-0.060); UREA NITROGEN 8 mg/dL (7-18); eGFR NON AFRICAN AMERICAN > 90 mL/min (90-120)
[2020-06-15 17:31] LABS: POTASSIUM - SERUM 2.7 mmol/L (3.5-5.1)
[2020-06-15] MEDS ORDERED: ZITHROMAX500 MG PO (19:32)
[2020-06-15] MEDS ORDERED: OMNICEF300 MG PO (19:32)
[2020-06-15 19:47] VITALS: BP 161/73
== END 2020-06-15 19:43 | disposition home or self-care (01) ==
LOC: D.ER 15:39
PROVIDERS: Family Medicine
DX: J18.9 Pneumonia, unspecified organism (principal); E11.9 Type 2 diabetes mellitus without complications; K21.9 Gastro-esophageal reflux disease without esophagitis; Z79.84 Long term (current) use of oral hypoglycemic drugs; R07.9 Chest pain, unspecified; R06.00 Dyspnea, unspecified

== ENCOUNTER 2021-02-05 16:25 | Inpatient (IN) | payer BC, MEDICARE ==
[~2021-02-05] VITALS: Ht 152.4 cm; Wt 86.2 kg
[~2021-02-05 16:25] MED LIST changes: +BAYER CHEWABLE81 MG PO; +HYDROCODON-ACE1 EA10 PO; +LOPRESSOR25 MG PO; +MEDROL DOSE PACK4 MG PO; +PROTONIX40 MG PO; +ZITHROMAX500 MG PO
[2021-02-05 17:13] LABS: BASOPHILS 0.9 % (0-2); EOSINOPHILS 0.7 % (0-7); HEMATOCRIT 44.3 % (36.0-48.0); HEMOGLOBIN 14.4 g/dL (12-16); LYMPHOCYTES 12.8 % (15-50); MCH 29.2 pg (26.0-34.0); MCHC 32.6 g/dL (31.0-37.0); MCV 89.4 fL (80.0-100.0); MEAN PLATELET VOLUME 8.1 fL (7.4-10.4); MONOCYTES 7.2 % (2-11); NEUTROPHILS 78.4 % (40-80); PLATELET COUNT 270 10x3/uL (130-400); RBC 4.95 10x6/uL (4.00-5.40); WBC 13.1 10x3/uL (4.8-10.8)
[2021-02-05 18:12] LABS: APTT 20.9 SECONDS (22.8-39.4); INR 1.06 (0.85-1.17); PROTIME 12.8 SECONDS (11.6-15.0)
[2021-02-05 18:33] LABS: ALBUMIN 3.5 g/dL (3.4-5.0); ALKALINE PHOSPHATASE 146 U/L (30-120); ALT (SGPT) 19 U/L (10-68); CALC OSMOLALITY 276 mosm/kg (275-300); CALCIUM 9.6 mg/dL (8.5-10.1); CARBON DIOXIDE 26.3 mmol/L (21.0-32.0); CHLORIDE - SERUM 92 mmol/L (98-107); CKMB 0.1 U/L (0.0-3.6); CREATINE KINASE 58 UL (21-215); CREATININE - SERUM 0.8 mg/dL (0.6-1.3); POTASSIUM - SERUM 3.6 mmol/L (3.5-5.1); PRO BNP 254 pg/mL (0-125); PROTEIN - SERUM 8.8 g/dL (6.4-8.2); SODIUM 130 mmol/L (136-145); TROPONIN-I < 0.017 ng/mL (0.000-0.060); UREA NITROGEN 5 mg/dL (7-18); eGFR NON AFRICAN AMERICAN 81 mL/min (90-120)
[2021-02-05 18:39] LABS: GLUCOSE 444 mg/dL (74-106)
[2021-02-05 19:06] VITALS: BP 128/86
--- NOTE | 2021-02-05 19:14 | NUR ---
REPORT GIVEN TO JUANITA HILTON
--- NOTE | 2021-02-05 19:53 | NUR ---
TOOK OVER PT CARE FROM LETICIA, PERFORMED EKG, GAVE MEDICATIONS AND STARTED ANTIBIOTICS, GAVE PT BEDSIDE TOILET, AND GAVE PT CALL LIGHT, TOLD HER TO LET ME KNOW IF SHE NEEDED ANYTHING
[2021-02-05 20:06] VITALS: BP 132/90
[2021-02-05 21:06] VITALS: BP 139/86
[2021-02-06 00:27] VITALS: BP 125/67
[2021-02-06 04:55] VITALS: BP 126/66
[2021-02-06 06:50] LABS: BASOPHILS 0.3 % (0-2); EOSINOPHILS 0.1 % (0-7); HEMATOCRIT 38.8 % (36.0-48.0); HEMOGLOBIN 12.7 g/dL (12-16); LYMPHOCYTES 8.9 % (15-50); MCH 29.3 pg (26.0-34.0); MCHC 32.7 g/dL (31.0-37.0); MCV 89.6 fL (80.0-100.0); MEAN PLATELET VOLUME 8.3 fL (7.4-10.4); MONOCYTES 2.4 % (2-11); NEUTROPHILS 88.3 % (40-80); PLATELET COUNT 266 10x3/uL (130-400); RBC 4.34 10x6/uL (4.00-5.40); RDW 15.6 % (11.5-14.5); WBC 12.5 10x3/uL (4.8-10.8)
[2021-02-06 07:46] LABS: ALBUMIN 2.7 g/dL (3.4-5.0); ALKALINE PHOSPHATASE 108 U/L (30-120); ALT (SGPT) 15 U/L (10-68); BILIRUBIN - TOTAL 0.23 mg/dL (0.2-1.3); CALCIUM 8.8 mg/dL (8.5-10.1); CARBON DIOXIDE 27.1 mmol/L (21.0-32.0); CHLORIDE - SERUM 96 mmol/L (98-107); CREATININE - SERUM 0.8 mg/dL (0.6-1.3); MAGNESIUM - SERUM 1.7 mg/dL (1.8-2.4); PHOSPHOROUS 2.5 mg/dL (2.5-4.9); POTASSIUM - SERUM 3.6 mmol/L (3.5-5.1); PROTEIN - SERUM 7.7 g/dL (6.4-8.2); SODIUM 131 mmol/L (136-145); eGFR NON AFRICAN AMERICAN 81 mL/min (90-120)
[2021-02-06 07:58] LABS: CALC OSMOLALITY 278 mosm/kg (275-300); GLUCOSE 405 mg/dL (74-106); UREA NITROGEN 11 mg/dL (7-18)
[2021-02-06 08:02] VITALS: BP 127/65
[2021-02-06 11:22] VITALS: Ht 152.4 cm; Wt 86.2 kg
[2021-02-06 11:30] VITALS: BP 111/49
--- NOTE | 2021-02-06 15:55 | NUR ---
URINE SPECIMEN COLLECTED AND TAKEN TO LAB FOR UA. WILL MONITOR.
[2021-02-06 16:00] VITALS: BP 120/63
--- NOTE | 2021-02-06 16:32 | NUR ---
GLUCOSE CALLED TO TAM. WILL MONITOR.
[2021-02-06 16:42] LABS: BILIRUBIN NEGATIVE (NEGATIVE); KETONE NEGATIVE (NEGATIVE); NITRITE NEGATIVE (NEGATIVE); UROBILINOGEN NORMAL mg/dL (< 2)
--- NOTE | 2021-02-06 19:30 | NUR ---
PT IN BED, AAO X 4, RESP EVEN AND UNLABORED, NO DISTRESS NOTED, CL IN REACH, SR UP X 2.
[2021-02-06 20:00] VITALS: BP 114/55
[2021-02-07] VITALS: BP 116/61
[2021-02-07 04:00] VITALS: BP 139/64
--- NOTE | 2021-02-07 04:35 | NUR ---
I have reviewed this patient and I concur with the Shift Assessment completed by the Licensed Practical Nurse today this shift.
[2021-02-07 05:44] LABS: BASOPHILS 0.4 % (0-2); EOSINOPHILS 0 % (0-7); HEMATOCRIT 36.9 % (36.0-48.0); MCH 28.8 pg (26.0-34.0); MCHC 32.7 g/dL (31.0-37.0); MCV 88.2 fL (80.0-100.0); MEAN PLATELET VOLUME 8.1 fL (7.4-10.4); MONOCYTES 3.9 % (2-11); NEUTROPHILS 87.7 % (40-80); PLATELET COUNT 294 10x3/uL (130-400); RBC 4.18 10x6/uL (4.00-5.40); RDW 15.3 % (11.5-14.5)
[2021-02-07 05:52] LABS: WBC 18.5 10x3/uL (4.8-10.8)
[2021-02-07 06:06] LABS: ALBUMIN 2.5 g/dL (3.4-5.0); ALKALINE PHOSPHATASE 105 U/L (30-120); ALT (SGPT) 14 U/L (10-68); BILIRUBIN - TOTAL 0.15 mg/dL (0.2-1.3); CALCIUM 8.2 mg/dL (8.5-10.1); CARBON DIOXIDE 28.3 mmol/L (21.0-32.0); CHLORIDE - SERUM 99 mmol/L (98-107); CREATININE - SERUM 0.7 mg/dL (0.6-1.3); MAGNESIUM - SERUM 1.8 mg/dL (1.8-2.4); PHOSPHOROUS 2.6 mg/dL (2.5-4.9); POTASSIUM - SERUM 3.8 mmol/L (3.5-5.1); PROTEIN - SERUM 6.6 g/dL (6.4-8.2); SODIUM 136 mmol/L (136-145); eGFR NON AFRICAN AMERICAN > 90 mL/min (90-120)
[2021-02-07 06:12] LABS: CALC OSMOLALITY 283 mosm/kg (275-300); GLUCOSE 296 mg/dL (74-106); UREA NITROGEN 15 mg/dL (7-18)
[2021-02-07 08:39] VITALS: BP 125/72
--- NOTE | 2021-02-07 11:16 | NUR ---
PATIENT AAOX4, RESP EVEN AND NON LABORED, NO S/S OF DISTRESS HIGH FLOW NS IN PLACE, MEDICATIONS ADMINISTERED WITH NO COMPLICATIONS, NO FURTHER NEEDS AT THIS TIME, CLIR, BLP
--- NOTE | 2021-02-07 12:20 | NUR ---
I have reviewed this patient and I concur with the Shift Assessment completed by the Licensed Practical Nurse today this shift.
[2021-02-07 13:38] VITALS: BP 132/73
[2021-02-07 15:35] LABS: SARS-CoV-2 ANTIGEN NEGATIVE- SARS-COV-2 (NEGATIVE)
[2021-02-07 16:30] VITALS: BP 127/64
--- NOTE | 2021-02-07 19:30 | NUR ---
PT IN BED, AAO X 4, RESP EVEN AND UNLABORED, NO DISTRESS NOTED, CL IN REACH, SR UP X 2.
[2021-02-07 20:33] VITALS: BP 133/66
[2021-02-08] VITALS (7 sets, daily range): BP systolic 122–162; BP diastolic 57–80
--- NOTE | 2021-02-08 02:59 | NUR ---
I have reviewed this patient and I concur with the Shift Assessment completed by the Licensed Practical Nurse today this shift.
[2021-02-08 08:27] LABS: BASOPHILS 0.2 % (0-2); EOSINOPHILS 0 % (0-7); HEMATOCRIT 35.6 % (36.0-48.0); HEMOGLOBIN 11.7 g/dL (12-16); LYMPHOCYTES 10.1 % (15-50); MCH 29.1 pg (26.0-34.0); MCHC 32.9 g/dL (31.0-37.0); MCV 88.4 fL (80.0-100.0); MEAN PLATELET VOLUME 8.1 fL (7.4-10.4); MONOCYTES 3.9 % (2-11); NEUTROPHILS 85.8 % (40-80); PLATELET COUNT 299 10x3/uL (130-400); RBC 4.03 10x6/uL (4.00-5.40); RDW 15.7 % (11.5-14.5); WBC 14.1 10x3/uL (4.8-10.8)
[2021-02-08 08:49] LABS: ALBUMIN 2.4 g/dL (3.4-5.0); ALKALINE PHOSPHATASE 92 U/L (30-120); ALT (SGPT) 17 U/L (10-68); BILIRUBIN - TOTAL 0.15 mg/dL (0.2-1.3); CALC OSMOLALITY 281 mosm/kg (275-300); CALCIUM 8.2 mg/dL (8.5-10.1); CARBON DIOXIDE 29.6 mmol/L (21.0-32.0); CHLORIDE - SERUM 101 mmol/L (98-107); CREATININE - SERUM 0.6 mg/dL (0.6-1.3); GLUCOSE 260 mg/dL (74-106); PHOSPHOROUS 1.6 mg/dL (2.5-4.9); POTASSIUM - SERUM 4.1 mmol/L (3.5-5.1); PROTEIN - SERUM 6.9 g/dL (6.4-8.2); SODIUM 136 mmol/L (136-145); UREA NITROGEN 16 mg/dL (7-18); eGFR NON AFRICAN AMERICAN > 90 mL/min (90-120)
--- NOTE | 2021-02-08 12:59 | NUR ---
Nutrition Reassessment/Follow-up: Good appetite/PO intake. Denies N/V/C/D, chewing/swallowing difficulty. Diet: Carb Consistent No PO intake recorded No new wt; last wt: 190# (02/06) Last BM: 02/08 Labs noted: Glu 260, Ca 8.2, PO4 1.6, Alb 2.4 Meds noted: Lantus, Humalog, Solumedrol, Protonix, Zofran, NS @ 100 Nutrition Diagnosis: -Altered nutrition-related lab values R/T T2DM AEB elev Glu. Nutrition Goals: -PO intake >=75% avg of meals/snacks. -Meet est fluid needs without fluid overload. -Stable dry wt. -Glu at or near normal. Nutrition Intervention: -Nutrition needs unchanged since initial assessment; no new wt available. -Monitor wt. -RD will follow up within 5-7 days.
--- NOTE | 2021-02-08 13:53 | NUR ---
UP AMBULATING HALLWAY WITH FAMILY MEMBER. GAIT STEADY.
--- NOTE | 2021-02-08 19:30 | NUR ---
PT IN BED, AAO X 4, RESP EVEN AND UNLABORED, NO DISTRESS NOTED, CL IN REACH, SR UP X 2.
--- NOTE | 2021-02-09 04:46 | NUR ---
I have reviewed this patient and I concur with the Shift Assessment completed by the Licensed Practical Nurse today this shift.
[2021-02-09 04:57] VITALS: BP 134/68
[2021-02-09 06:36] LABS: BASOPHILS 0.1 % (0-2); EOSINOPHILS 0 % (0-7); HEMATOCRIT 37.3 % (36.0-48.0); HEMOGLOBIN 12.2 g/dL (12-16); LYMPHOCYTES 17.1 % (15-50); MCH 29.1 pg (26.0-34.0); MCHC 32.7 g/dL (31.0-37.0); MCV 89.2 fL (80.0-100.0); MEAN PLATELET VOLUME 7.7 fL (7.4-10.4); MONOCYTES 4.6 % (2-11); NEUTROPHILS 78.2 % (40-80); PLATELET COUNT 329 10x3/uL (130-400); RBC 4.19 10x6/uL (4.00-5.40); RDW 15.7 % (11.5-14.5); WBC 13.4 10x3/uL (4.8-10.8)
--- NOTE | 2021-02-09 06:50 | NUR ---
PATIENT RESTING COMFORTABLY, NO CURRENT PAIN OR DISTRESS NOTED. IV PATEINT IN LFT FOREARM NS SALINE RUNNING AT 75. RESP EVEN AND UNLABORED ON 2L O2.
[2021-02-09 06:57] LABS: ALBUMIN 2.4 g/dL (3.4-5.0); ALKALINE PHOSPHATASE 88 U/L (30-120); BILIRUBIN - TOTAL 0.16 mg/dL (0.2-1.3); CALCIUM 8.4 mg/dL (8.5-10.1); CARBON DIOXIDE 32.5 mmol/L (21.0-32.0); CHLORIDE - SERUM 102 mmol/L (98-107); CREATININE - SERUM 0.6 mg/dL (0.6-1.3); POTASSIUM - SERUM 3.5 mmol/L (3.5-5.1); PROTEIN - SERUM 6.6 g/dL (6.4-8.2); SODIUM 139 mmol/L (136-145); UREA NITROGEN 15 mg/dL (7-18); eGFR NON AFRICAN AMERICAN > 90 mL/min (90-120)
[2021-02-09 07:00] LABS: ALT (SGPT) 22 U/L (10-68); CALC OSMOLALITY 282 mosm/kg (275-300); GLUCOSE 178 mg/dL (74-106); PHOSPHOROUS 2.1 mg/dL (2.5-4.9)
[2021-02-09 07:30] VITALS: BP 171/68
--- NOTE | 2021-02-09 08:30 | NUR ---
PATIENT CONTINUES RESTING COMFORTABLY, EASILY AROUSED FOR MEDS. PATIENT ABLE TO MAKE NEEDS KNOWN. RESP EVEN AND UNLABORED, O2 IN USE VIA NASAL CANNULA GORGE 99. LUNG SOUNDS CTA. IV TO LEFT FOREARM PATENT AND RUNNING NS AT 75. HEART SOUNDS REGULAR RATE AND RYTHYM TEL SB AT 59. PATIENT IS ALERT AND ORIENTED, UP AT TELLY. CONTINENT TO BOWEL AND BLADDER.
--- NOTE | 2021-02-09 10:30 | NUR ---
PATIENT WALKED WITH THERAPY, DISCHARGE ORDERS IN PLACE.
[2021-02-09] MEDS ORDERED: TESSALON PERLE100 MG PO (10:57)
[2021-02-09] MEDS ORDERED: MUCINEX600 MG PO (10:57)
[2021-02-09] MEDS ORDERED: PREDNISONE10 MG PO (10:58)
[2021-02-09] MEDS ORDERED: ADOXA100 MG PO (10:59)
[2021-02-09] MEDS ORDERED: FLUTICASONE PRO16 GM NASAL (11:00)
[2021-02-09 11:05] VITALS: BP 137/59
--- NOTE | 2021-02-09 11:14 | NUR ---
PATIENT SP02 96% ON RA WITH AMBULATION PATIENT SP02 94%
--- NOTE | 2021-02-09 13:21 | MORECARE ---
CASE MANAGEMENT DISCHARGE SUMMARY PATIENT: KENYON WATSON UNIT: [id number] ADM DATE: 02/05/21 AGE: 45 : 71 SEX: F ROOM/BED: D.2108 AUTHOR: BERKLEY,DOC PHYSICIAN: REFERRING PHYSICIAN: EDY KITCHEN MD DATE OF SERVICE: 02/09/21 Case Management Discharge Planning Summary DCP REVIEW SUMMARY ANTICIPATED D/C DATE: 02/09/2021 EXPECTED LOS : 4 CASE STATUS: DCP Initiated INITIAL REVIEW: 02/05/2021 INITIAL REVIEWER: Kathi Barrera FINAL DISCHARGE DISPOSITION: 01 : Home or Self Care (Routine Discharge) FINAL REVIEWER: FINAL REVIEW DATE: DCP Focus Questions & Answers QUESTION: ANSWER : PATIENT: KENYON WATSON ENCOUNTER: [id number] MEDICAL RECORD#: [id number] ADMISSION DATE: 02/05/2021 DISCHARGE DATE: 02/09/2021 ATTENDING MD: DEY CONTE : AGE: 45 MARITAL STATUS: M DC PLAN ID: [id number] FACILITY: [facility] PRINTED ON: 02/09/21 13:21 CT All edits/amendments must be made on the electronic document DICTATION DATE: 02/09/21 132 CLIMATE CHANGE ANALYST: MANI 02/09/21 1321 RPT#: [id number] DC DATE:02/09/21 STATUS: DIS IN [facility] [address] [place] [address] END OF REPORT
--- NOTE | 2021-02-09 13:41 | MORECARE ---
CASE MANAGEMENT DISCHARGE SUMMARY PATIENT: KENYON WATSON UNIT: [id number] ADM DATE: 02/05/21 AGE: 45 : 71 SEX: F ROOM/BED: D.2108 AUTHOR: BERKLEY,DOC PHYSICIAN: REFERRING PHYSICIAN: EDY KITCHEN MD DATE OF SERVICE: 02/09/21 Case Management Discharge Planning Summary COMMENTS ENTERED DATE: 02/09/21 13:21 CT COMMENT TYPE: Discharge Planning REVIEWER: Kathi Barrera Pt discharged home with discharge instructions and follow up appts. No additional needs voiced a this time. DCP REVIEW SUMMARY ANTICIPATED D/C DATE: 02/09/2021 EXPECTED LOS : 4 CASE STATUS: DCP Initiated INITIAL REVIEW: 02/05/2021 INITIAL REVIEWER: Kathi Barrera FINAL DISCHARGE DISPOSITION: 01 : Home or Self Care (Routine Discharge) FINAL REVIEWER: FINAL REVIEW DATE: DCP Focus Questions & Answers QUESTION: ANSWER : PATIENT: KENYON WATSON ENCOUNTER: [id number] MEDICAL RECORD#: [id number] ADMISSION DATE: 02/05/2021 DISCHARGE DATE: 02/09/2021 ATTENDING MD: EDY CONTE : AGE: 45 MARITAL STATUS: M DC PLAN ID: [id number] FACILITY: [facility] PRINTED ON: 02/09/21 13:41 CT All edits/amendments must be made on the electronic document DICTATION DATE: 02/09/21 1341 SECTION BEAMER: DM 02/09/21 1341 RPT#: [id number] DC DATE:02/09/21 STATUS: DIS IN [place] [id number] [place] [address] END OF REPORT
== END 2021-02-09 12:48 | disposition home or self-care (01) | DRG 193 ==
LOC: D.ER 16:25 → D.M2 17:20 → D.EDHOLD 17:20 → D.M2 20:03
PROVIDERS: Family Medicine; Internal Medicine Pulmonary Disease; ADMIT Emergency Medicine; ATTEND Emergency Medicine
DX: J18.9 Pneumonia, unspecified organism (principal); J96.01 Acute respiratory failure with hypoxia; E87.1 Hypo-osmolality and hyponatremia; I25.10 Atherosclerotic heart disease of native coronary artery without angina pectoris; F17.200 Nicotine dependence, unspecified, uncomplicated; I10 Essential (primary) hypertension; K21.9 Gastro-esophageal reflux disease without esophagitis; E11.9 Type 2 diabetes mellitus without complications; F41.8 Other specified anxiety disorders; R00.1 Bradycardia, unspecified